=== PATIENT | male | born 1970 | race Caucasian/White ===

== ENCOUNTER 2022-03-01 15:01 | Inpatient (IN) | payer MEDICARE, MEDICAID ==
[2022-03-01 15:44] LABS: Amphetamine Screen,Urine Not Detected (NotDetected); Barbiturate Screen,Urine Not Detected (NotDetected); Benzodiazepines Screen,Urine Not Detected (NotDetected); Cocaine Screen,Urine Not Detected (NotDetected); Methadone Screen, Urine Not Detected (NotDetected); Opiate Screen,Urine Not Detected (NotDetected); Oxycodone Screen, Urine Not Detected (NotDetected); Phencyclidine Screen,Urine Not Detected (NotDetected); Tricyclic Antidepressant,Urine Not Detected (NotDetected); Urn Cannabinoid Scrn Not Detected (NotDetected)
--- NOTE | 2022-03-01 16:41 | ED ---
General Adult HPI - General Source: patient, EMS, RN notes reviewed, old records reviewed Mode of arrival: EMS Limitations: no limitations <Juventino Sandoval - Last Filed: 03/01/22 20:45> <Darius Mercer - Last Filed: 03/02/22 02:42> - General Chief complaint: Psychiatric Symptoms Stated complaint: mental health Time Seen by Provider: 03/01/22 15:05 - History of Present Illness Initial comments: This is a 52-year-old male who lives in a custodial and they sent him in and he had a court order to pick him up because patient was not taking his medications that he is becoming aggressive with staff and the other consumers. Patient does not give any insight as to why he is doing this. Patient states he thinks there are people that it might want her to besides that he has no insight as to why he is here. According to the N that came with the patient staff states that he is becoming more and more aggressive he stated that he might shoot one of the other consumers father's in the head. According to the staff is also smeared feces all over the wall and door. Patient's also thrown up some of his belongings patient is also written on his new car heart that his work gave him. Patient has also missed the last couple days of work which he normally enjoys going to. Patient denies any homicidal or suicidal ideations. Patient did tell me he was depressed but isn't extremely poor historian (Juventino Sandoval) - Related Data Home Medications Medication Instructions Recorded Confirmed Ascorbic Acid [Vitamin C] 500 mg PO DAILY 03/01/22 03/01/22 Cholecalciferol [Vitamin D3 (25 50 mcg PO DAILY 03/01/22 03/01/22 Mcg = 1000 Iu)] Citalopram Hydrobromide [CeleXA] 40 mg PO DAILY 03/01/22 03/01/22 QUEtiapine [SEROquel] 100 mg PO HS 03/01/22 03/01/22 Zinc Sulfate [Orazinc] 220 mg PO DAILY 03/01/22 03/01/22 busPIRone HCL [Buspar] 30 mg PO BID 03/01/22 03/01/22 Allergies Allergy/AdvReac Type Severity Reaction Status Date / Time fluphenazine [From Prolixin] AdvReac severe Verified 03/01/22 16:39 dystonia, not responsive to benztropine, hospitalized Review of Systems ROS Other: All systems not noted in ROS Statement are negative. <Juventino Sandoval - Last Filed: 03/01/22 20:45> ROS Other: All systems not noted in ROS Statement are negative. <RuslanDarius Julián - Last Filed: 03/02/22 02:42> ROS Statement: Those systems with pertinent positive or pertinent negative responses have been documented in the HPI. Past Medical History Additional Past Medical History / Comment(s): mild intellectual disability History of Any Multi-Drug Resistant Organisms: None Reported Past Surgical History: No Surgical Hx Reported Past Psychological History: Depression Smoking Status: Never smoker Past Alcohol Use History: None Reported Past Drug Use History: None Reported <Juventino Sandoval - Last Filed: 03/01/22 20:45> General Exam Limitations: no limitations <Juventino Sandoval - Last Filed: 03/01/22 20:45> - General Exam Comments Initial Comments: GENERAL: Patient is well-developed and well-nourished. Patient is nontoxic and well- hydrated and is in no acute distress. ENT: Neck is soft and supple. No significant lymphadenopathy is noted. Oropharynx is clear. Moist mucous membranes. Neck has full range of motion without eliciting any pain. EYES: The sclera were anicteric and conjunctiva were pink and moist. Extraocular movements were intact and pupils were equal round and reactive to light. Eyelids were unremarkable. PULMONARY: Unlabored respirations. Good breath sounds bilaterally. No audible rales rhonchi or wheezing was noted. CARDIOVASCULAR: There is a regular rate and rhythm without any murmurs gallops or rubs. ABDOMEN: Soft and nontender with normal bowel sounds. SKIN: Skin is clear with no lesions or rashes and otherwise unremarkable. NEUROLOGIC: Patient is alert and oriented unable to assess since he does not answer my questions. Cranial nerves II through XII are grossly intact. Motor and sensory are also intact. Normal speech, volume and content. Symmetrical smile. MUSCULOSKELETAL: Normal extremities with adequate strength and full range of motion. LYMPHATICS: No significant lymphadenopathy is noted PSYCHIATRIC: Patient does not answer most questions he did however at one point stated he was depressed and at another time he stated that he felt other people in the custodial were trying to hurt. (Juventino Sandoval) Course Vital Signs 03/01/22 15:02 Temperature 97.2 F L Pulse Rate 93 Respiratory 18 Rate Blood Pressure 154/89 O2 Sat by Pulse 98 Oximetry Medical Decision Making <Juventino Sandoval - Last Filed: 03/01/22 20:45> <Darius Mercer - Last Filed: 03/02/22 02:42> - Medical Decision Making Dr. Mercer will be taking over the care of this patient at 9 PM (Juventino Sandoval) Patient care signed out to me by previous shift physician, Dr. Sandoval. Briefly, patient is here in emergency department for aggressive behavior. Allegedly there is a court order to bring patient to the emergency room for psychiatric evaluation. Plan at sign out was to follow up with EPS recommendations. Was notified at 2:40 AM from EPS staff member that patient will be admitted to [facility] psychiatric unit. Certification documentation completed. (Darius Mercer) - Lab Data Lab Results 03/01/22 Range/Units 15:21 Urine Opiates Screen Not Detected (NotDetected) Ur Oxycodone Screen Not Detected (NotDetected) Urine Methadone Screen Not Detected (NotDetected) Ur Propoxyphene Screen Not Detected (NotDetected) Ur Barbiturates Screen Not Detected (NotDetected) U Tricyclic Antidepress Not Detected (NotDetected) Ur Phencyclidine Scrn Not Detected (NotDetected) Ur Amphetamines Screen Not Detected (NotDetected) U Methamphetamines Scrn Not Detected (NotDetected) U Benzodiazepines Scrn Not Detected (NotDetected) Urine Cocaine Screen Not Detected (NotDetected) U Marijuana (THC) Screen Not Detected (NotDetected) Disposition <Juventino Sandoval - Last Filed: 03/01/22 20:45> Decision Time: 02:42 <Darius Mercer - Last Filed: 03/02/22 02:42> Clinical Impression: Aggressive behavior Disposition: ADMITTED IP TO THIS HOSP Condition: Fair Referrals: Alaina Diaz MD [Primary Care Provider] - 1-2 days
[2022-03-02] MEDS ORDERED: MAG HYDROX/AL HYDROX/SIMETH 355 ML BOTTLE PO PRN (05:26)
[2022-03-02] MEDS ORDERED: HALOPERIDOL LACTATE 5 MG/ML 1 ML VIAL IM PRN (05:26)
[2022-03-02] MEDS ORDERED: ACETAMINOPHEN TAB 325 MG TAB PO PRN (05:26)
[2022-03-02] MEDS ORDERED: MAGNESIUM HYDROXIDE 2,400 MG/10 ML CUP PO PRN (05:26)
[2022-03-02] MEDS ORDERED: LORazepam 1 MG TAB PO PRN (05:26)
[2022-03-02] MEDS ORDERED: LORazepam 2 MG/ML INJ IM PRN (05:30)
[2022-03-02] MEDS ORDERED: haloperidoL 5 MG TAB PO PRN (05:30)
[2022-03-02 06:05] LABS: Appearance,Urine Cloudy (Clear); Bacteria,Urine Rare /hpf; Bilirubin,Urine Negative (Negative); Blood,Urine Negative (Negative); Color,Urine Yellow; Glucose,Urine (UA) Negative (Negative); Ketones,Urine Negative (Negative); Leukocyte Esterase,Urine Negative (Negative); Nitrite,Urine Negative (Negative); PH, Urine 6.5 (5.0-8.0); Protein,Urine Negative (Negative); Specific Gravity,Urine 1.017 (1.001-1.035); Urobilinogen,Urine <2.0 mg/dL (<2.0); WBC,Urine 1 /hpf (0-5)
[2022-03-02] MEDS: busPIRone HCl 10 MG TAB PO SCH ×2 (08:57→20:35)
[2022-03-02] MEDS: CITALOPRAM HYDROBROMIDE 20 MG TAB PO SCH (08:58)
--- NOTE | 2022-03-02 11:45 | P.CONS ---
History of Present Illness - Reason for Consult Consult date: 03/02/22 Medical management Requesting physician: Calvin Nelson - Chief Complaint Schizophrenia - History of Present Illness This is a 52-year-old male patient who presented to the ER from longterm due to court ordered to pick him up because he was apparently not taking his medication and becoming more aggressive. Patient does have a history of mild intellectual disability and depression. At this time patient is calm during exam patient denies any acute illness. Patient denies change in appetite. Patient denies nausea vomiting or diarrhea. Patient denies chest pain or shortness breath. Patient denies any urinary burning or frequency. Routine CBC and CMP has been ordered Review of Systems Please refer to HPI otherwise unremarkable Past Medical History Additional Past Medical History / Comment(s): mild intellectual disability History of Any Multi-Drug Resistant Organisms: None Reported Past Surgical History: No Surgical Hx Reported Past Psychological History: Depression, Schizoaffective Disorder Smoking Status: Never smoker Past Alcohol Use History: None Reported Past Drug Use History: None Reported Medications and Allergies Home Medications Medication Instructions Recorded Confirmed Type Ascorbic Acid [Vitamin C] 500 mg PO DAILY 03/01/22 03/02/22 History Cholecalciferol [Vitamin D3 (25 50 mcg PO DAILY 03/01/22 03/02/22 History Mcg = 1000 Iu)] Citalopram Hydrobromide [CeleXA] 40 mg PO DAILY 03/01/22 03/02/22 History QUEtiapine [SEROquel] 100 mg PO HS 03/01/22 03/02/22 History Zinc Sulfate [Orazinc] 220 mg PO DAILY 03/01/22 03/02/22 History busPIRone HCL [Buspar] 30 mg PO BID 03/01/22 03/02/22 History Allergies Allergy/AdvReac Type Severity Reaction Status Date / Time fluphenazine [From Prolixin] AdvReac severe Verified 03/02/22 05:18 dystonia, not responsive to benztropine, hospitalized Physical Exam Vitals: Vital Signs Temp Pulse Pulse Resp BP BP Pulse Ox 03/02/22 11:12 98.1 F 118 H 18 121/86 98 03/02/22 06:03 98.4 F 87 15 144/96 96 03/02/22 05:41 16 03/01/22 15:02 97.2 F L 93 18 154/89 98 Intake and Output 03/01/22 03/02/22 03/02/22 22:59 06:59 14:59 Other: Weight 95.254 kg 80.371 kg Head normocephalic Neck supple Lungs clear to auscultation bilaterally no wheezing or crackles Heart regular rate and rhythm S1-S2, no rub or gallop Abdomen is soft nontender nondistended positive bowel sounds no hepatosplenomegaly Extremities no edema Neuro alert and orientated to 3 Results Labs: Abnormal Lab Results - Last 24 Hours (Table) 03/01/22 Range/Units 15:21 Urine Bacteria Rare H (None) /hpf Assessment and Plan Assessment: 1. Aggressive behavior 2. History of depression 3. History of intellectual disability 4. History of schizoaffective disorder Thank you for this consultation we will continue to follow patient closely throughout stay Routine CBC and CMP ordered Time with Patient: Greater than 30 (Greater than 60% of the total time spent in counseling and coordination of care)
--- NOTE | 2022-03-02 11:52 | P.HP ---
Psychiatric H&P - . H&P Date: 03/02/22 History & Physical: Allergies Allergy/AdvReac Type Severity Reaction Status Date / Time fluphenazine [From Prolixin] AdvReac severe Verified 03/02/22 05:18 dystonia, not responsive to benztropine, hospitalized Vital Signs Temp 98.1 F 03/02/22 11:12 Pulse 118 H 03/02/22 11:12 Resp 18 03/02/22 11:12 BP 121/86 03/02/22 11:12 Pulse Ox 98 03/02/22 11:12 FiO2 Intake & Output 03/01/22 03/02/22 03/02/22 18:59 06:59 18:59 Weight 95.254 kg 80.371 kg Laboratory Last Values Urine Color Yellow 03/01/22 15:21 Urine Appearance Cloudy (Clear) 03/01/22 15:21 Urine pH 6.5 (5.0-8.0) 03/01/22 15:21 Ur Specific [place] 1.017 (1.001-1.035) 03/01/22 15:21 Urine Protein Negative (Negative) 03/01/22 15:21 Urine Glucose (UA) Negative (Negative) 03/01/22 15:21 Urine Ketones Negative (Negative) 03/01/22 15:21 Urine Blood Negative (Negative) 03/01/22 15:21 Urine Nitrite Negative (Negative) 03/01/22 15:21 Urine Bilirubin Negative (Negative) 03/01/22 15:21 Urine Urobilinogen <2.0 mg/dL (<2.0) 03/01/22 15:21 Ur Leukocyte Esterase Negative (Negative) 03/01/22 15:21 Urine WBC 1 /hpf (0-5) 03/01/22 15:21 Urine Bacteria Rare /hpf (None) H 03/01/22 15:21 Urine Opiates Screen Not Detected (NotDetected) 03/01/22 15:21 Ur Oxycodone Screen Not Detected (NotDetected) 03/01/22 15:21 Urine Methadone Screen Not Detected (NotDetected) 03/01/22 15:21 Ur Propoxyphene Screen Not Detected (NotDetected) 03/01/22 15:21 Ur Barbiturates Screen Not Detected (NotDetected) 03/01/22 15:21 U Tricyclic Antidepress Not Detected (NotDetected) 03/01/22 15:21 Ur Phencyclidine Scrn Not Detected (NotDetected) 03/01/22 15:21 Ur Amphetamines Screen Not Detected (NotDetected) 03/01/22 15:21 U Methamphetamines Scrn Not Detected (NotDetected) 03/01/22 15:21 U Benzodiazepines Scrn Not Detected (NotDetected) 03/01/22 15:21 Urine Cocaine Screen Not Detected (NotDetected) 03/01/22 15:21 U Marijuana (THC) Screen Not Detected (NotDetected) 03/01/22 15:21 Coronavirus (PCR) Not Detected (Not Detectd) 03/02/22 03:22 03/02/22 11:51 IDENTIFYING DATA: Patient is a single, employed, 52-year-old male with significant history of intellectual disability and major depressive disorder presents to her hospital under petition and certification on 03/01/2022 for bizarre and agitated behaviors. HPI: Patient presented to the hospital on 03/01/2022, brought in under petition and certification for bizarre and agitated behaviors. As per petition, staff has had to clearn up feces smeared on the door and [place] of his bedroom. He stuffed paper and personal belongings in the toilet. He has recently stopped taking his medications. As pet email from the patient's staff at [facility] to his guardian, "Patient wrote 'FU*K YOU' on his work Car[employer] shirt that [employer] had purchased for him. 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 He was noted to destroy property and threw away personal items. He has also been noted by staff to take other residents' belongings and respond to internal stimuli. Upon evaluation on the mental health unit, the patient does admit to what has stated in the petition and the email. He is unable to verbalize any clear reasoning but states he has been hearing voices of his mother and father who are . He denies that these voices are commanding in nature. He does report feeling increasingly depressed however is denying any suicidal or homicidal ideation. He reports low mood and states he is "stressed" but cannot identify any acute stressors to this provider. Review of the patient's [facility] medication review notes reveal that the patient was previously treated with prolixin however developed severe dystonia. He has been on seroquel in the past but was often too sedated on this medication. The patient signed himself voluntarily onto the psychiatric unit and is in agreement for medication adjustments. PAST PSYCHIATRIC HISTORY: Patient has previous diagnoses of intellectual disability and major depressive disorder. Patient has been previously trialed on prolixin and is currently on a home regimen of seroquel, buspar and citalopram. Unable to determine any previous psychiatric admissions on this unit. Patient follows with [facility]. Uncertain as to previous suicide attempts. PMH: Additional Past Medical History / Comment(s): mild intellectual disability History of Any Multi-Drug Resistant Organisms: None Reported Past Surgical History: No Surgical Hx Reported Past Psychological History: Depression, Schizoaffective Disorder Smoking Status: Never smoker Past Alcohol Use History: None Reported Past Drug Use History: None Reported ALLERGIES: Fluphenazine CHEMICAL DEPENDENCY HISTORY: Patient denies any tobacco, alcohol, marijuana, or illicit drug use. FAMILY PSYCHIATRIC/SUBSTANCE USE HISTORY: Unable to determine. SOCIAL HISTORY: Patient has a public guardian. He is a resident at the [facility]. He is employed by [employer]. He is single, not , and has no children. His parents are . He reports he had a girlfriend who also . MENTAL STATUS EXAM: General Appearance: Patient appears to be stated age is alert, directable, and attempts to cooperate. Patient appears to have disheveled hygiene and grooming. Behavior: Patient is lying down in bed without any agitated or bizarre behavior. Speech: Patient's speech is fluent, minimal, monotone, and replies in mainly one-word replies. Mood/Affect: Patient reports their mood is depressed, affect is congruent and constricted. Suicidality/Homicidality: Patient denies any suicidal or homicidal ideation. Perceptions: Patient denies any visual hallucinations however he does endorse auditory hallucinations. Though content/process: The patient admits to the bizarre behaviors however is unable to verbalize reasoning to his actions. Memory and concentration: AOX3, grossly intact for the purposes of this session. Judgment and insight: Poor STRENGTHS/WEAKNESSES: Strength is that the patient has housing and has gainful employment. Weakness is that the patient is nonadherent with medications. INTELLECT: Below average IMPRESSIONS: Intellectual Disability Major Depressive Disorder, recurrent, severe, with psychotic features. PLAN: -Patient is admitted under voluntary status to MHU for stabilization of psychiatric symptoms and safety. Patient signed adult voluntary form and medication consent and is placed in patient's chart. -Medications : Discontine Seroquel. Start Risperdal 1 mg twice daily for psychosis/mood. Continue Buspar 30 mg twice daily for anxiety Continue Citalopram 40 mg daily for depression/anxiety -Ativan and Haldol PRN for agitation/aggression -Patient was informed of the risks, benefits and side effects of the medication and patient verbally consented to taking the medications. Patient signed med consent form and was placed in chart. -Internal Medicine consult to perform medical evaluation and physical. -SW on board for discharge planning. Encourage patient to participate in groups to work on coping skills. 03/02/22 11:51
[2022-03-02] MEDS: risperiDONE 1 MG TAB PO SCH (20:35)
[2022-03-02] MEDS ORDERED: QUEtiapine 100 MG TAB PO SCH (21:00)
[2022-03-03 07:49] LABS: Basophils # (A) 0.1 k/uL (0-0.2); Basophils % (A) 1 %; Eosinophils % (A) 1 %; HGB 16.4 gm/dL (13.0-17.5); Lymphocytes # (A) 1.3 k/uL (1.0-4.8); Lymphocytes % (A) 17 %; MCH 31.2 pg (25.0-35.0); MCHC 33.4 g/dL (31.0-37.0); MCV 93.5 fL (80.0-100.0); Mean Platelet Volume 7.5; Monocytes # (A) 0.4 k/uL (0-1.0); Monocytes % (A) 5 %; Neutrophils % (A) 76 %; Platelet Count 332 k/uL (150-450); RBC 5.25 m/uL (4.30-5.90); RDW 12.3 % (11.5-15.5); WBC 7.9 k/uL (3.8-10.6)
[2022-03-03 07:54] LABS: ALT 51 U/L (4-49); AST 34 U/L (17-59); African American GFR (CKD) >90 (>60 ml/min/1.73 sqM); Albumin 4.5 g/dL (3.5-5.0); Alkaline Phosphatase 81 U/L (38-126); Anion Gap 7 mmol/L; Bilirubin, Delta 0.2 mg/dL (0.0-0.2); Bilirubin,Unconjugated 0.3 mg/dL (0.0-1.1); Blood Urea Nitrogen 14 mg/dL (9-20); Carbon Dioxide 31 mmol/L (22-30); Chloride 104 mmol/L (98-107); Glucose 118 mg/dL (74-99); Non-African American GFR(CKD) >90 (>60 ml/min/1.73 sqM); Potassium 5.2 mmol/L (3.5-5.1); Sodium 142 mmol/L (137-145); Total Bilirubin 0.5 mg/dL (0.2-1.3); Total Protein 7.7 g/dL (6.3-8.2)
[2022-03-03] MEDS: CITALOPRAM HYDROBROMIDE 20 MG TAB PO SCH (08:29)
[2022-03-03] MEDS: risperiDONE 1 MG TAB PO SCH (08:29)
[2022-03-03] MEDS: busPIRone HCl 10 MG TAB PO SCH ×2 (08:29→20:25)
[2022-03-03 10:31] LABS: Chol/HDL Ratio 4.52 Ratio; LDL Cholesterol,Calculated 125.8 mg/dL (0.0-131.0)
--- NOTE | 2022-03-03 11:20 | P.PN ---
Progress Note - Text Progress Note Date: 03/03/22 Interval History: Patient was seen resting in bed and was directable and agreeable to speak with typewriters functional tester in the office., The patient is not reporting any suicidal or homicidal ideation, intention, and/or plan. He is not reporting any visual hallucinations. He continues to report he hears the voices of his parents and girlfriend telling him "things will be ok." He denies any paranoia or other delusions. When asked why he wrote the "F*CK Y*U" on his work shirt, the patient explains that he was upset with [employer] because they did not fix the dowel at his work station. He otherwise states he loves his job. The patient was later seen wandering the hallways where he expressed he wanted to speak with the provider. He informed the provider that he was feeling sad and misses his dogs and his family. Reflective listening took place. He did not report any other issues to this provider. He denies any issues regarding his sleep or his appetite. He reports no side effects of his medications. No medical issues or concerns were endorsed. Mental Status Exam: General Appearance: Patient appears to be stated age is alert, directable, and cooperative. Behavior: Patient is calmly seated without any agitated behavior. Speech: Patient's speech is fluent and nonpressured. Mood/Affect: Mood is improving mildly, affect is congruent and constricted. Suicidality/Homicidality: Patient denies having any suicidal or homicidal ideation intent or plan. Perceptions: Patient denies any visual hallucinations however continues to endorse auditory hallucinations. Though content/process: Focused on missing his family and dogs. No delusional thought content. Memory and concentration: AOX3, grossly intact for the purposes of this session Judgment and insight: Improving mildly Vital Signs Temp 97.9 F 03/03/22 08:28 Pulse 120 H 03/03/22 08:28 Resp 18 03/03/22 08:28 BP 136/74 03/03/22 08:28 Pulse Ox 98 03/02/22 11:12 FiO2 Intake & Output 03/02/22 03/03/22 03/03/22 18:59 06:59 18:59 Weight 80.371 kg Laboratory Results - Last 24 Hours 03/03/22 03/03/22 03/03/22 07:19 07:19 07:19 WBC 7.9 RBC 5.25 Hgb 16.4 Hct 49.0 MCV 93.5 MCH 31.2 MCHC 33.4 RDW 12.3 Plt Count 332 MPV 7.5 Neutrophils % 76 Lymphocytes % 17 Monocytes % 5 Eosinophils % 1 Basophils % 1 Neutrophils # 6.0 Lymphocytes # 1.3 Monocytes # 0.4 Eosinophils # 0.0 Basophils # 0.1 Sodium 142 Potassium 5.2 H Chloride 104 Carbon Dioxide 31 H Anion Gap 7 BUN 14 Creatinine 0.90 Est GFR (CKD-EPI)AfAm >90 Est GFR (CKD-EPI)NonAf >[address] Glu mg/dL 121 Hemoglobin A1c 5.9 Calcium 9.0 Total Bilirubin 0.5 Conjugated Bilirubin 0.0 Unconjugated Bilirubin 0.3 Delta Bilirubin 0.2 AST 34 ALT 51 H Alkaline Phosphatase 81 Total Protein 7.7 Albumin 4.5 Triglycerides 142.00 Cholesterol 198.00 LDL Cholesterol, Calc 125.8 VLDL Cholesterol, Calc 28.40 HDL Cholesterol 43.80 Cholesterol/HDL Ratio 4.52 TSH 3.590 Assessment Intellectual Disability Major Depressive Disorder, recurrent, severe, with psychotic features. Plan: -Patient continues to meet criteria for inpatient psychiatric admission for symptom stabilization and safety. Patient has signed adult voluntary form and medication consent and was placed in patient's chart. -Medications: Increase Risperdal to 2 mg twice daily for psychosis/mood Continue Buspar 30 mg twice daily for anxiety Continue Citalopram 40 mg daily for depression/anxiety -When necessary Ativan and Haldol for agitation/aggression. -SW on board for discharge planning. Encouraged the patient to participate in milieu.
[2022-03-03] MEDS: risperiDONE 2 MG TAB PO SCH (20:25)
[2022-03-04] MEDS: busPIRone HCl 10 MG TAB PO SCH ×2 (09:03→21:00)
[2022-03-04] MEDS: risperiDONE 2 MG TAB PO SCH ×2 (09:04→21:00)
[2022-03-04] MEDS: CITALOPRAM HYDROBROMIDE 20 MG TAB PO SCH (09:04)
--- NOTE | 2022-03-04 11:34 | P.PN ---
Progress Note - Text Progress Note Date: 03/04/22 Interval History: Patient was seen resting in bed and was directable and agreeable to speak with tech writer in the office. Currently, the patient is not reporting any suicidal or homicidal ideation, intention, and/or plan. He is not reporting any auditory or visual hallucinations. He reports no paranoia or other delusions. He has been adherent with his medications and reports no side effects. He continues to express sadness at missing his family and girlfriend but reports no issues today. He denies any medical issues or concerns. Mental Status Exam: General Appearance: Patient appears to be stated age is alert, directable, and cooperative. Behavior: Patient is calmly seated without any agitated behavior. Speech: Patient's speech is fluent and nonpressured. Mood/Affect: Mood is improving mildly, affect is congruent and constricted. Suicidality/Homicidality: Patient denies having any suicidal or homicidal ideation intent or plan. Perceptions: Patient denies any visual hallucinations or auditory hallucinations. Though content/process: Focused on missing his family and dogs. No delusional thought content. Memory and concentration: AOX3, grossly intact for the purposes of this session Judgment and insight: Improving mildly Vital Signs Temp 98.4 F 03/04/22 06:48 Pulse 97 03/04/22 06:48 Resp 15 03/04/22 06:48 BP 115/77 03/04/22 06:48 Pulse Ox 97 03/04/22 06:48 FiO2 Assessment Intellectual Disability Major Depressive Disorder, recurrent, severe, with psychotic features. Plan: -Patient continues to meet criteria for inpatient psychiatric admission for symptom stabilization and safety. Patient has signed adult voluntary form and medication consent and was placed in patient's chart. -Medications: Continue Risperdal 2 mg twice daily for psychosis/mood Continue Buspar 30 mg twice daily for anxiety Continue Citalopram 40 mg daily for depression/anxiety -When necessary Ativan and Haldol for agitation/aggression. -SW on board for discharge planning. Encouraged the patient to participate in milieu.
[2022-03-05] MEDS: busPIRone HCl 10 MG TAB PO SCH ×2 (09:54→20:38)
[2022-03-05] MEDS: risperiDONE 2 MG TAB PO SCH ×2 (09:54→20:39)
[2022-03-05] MEDS: CITALOPRAM HYDROBROMIDE 20 MG TAB PO SCH (09:54)
--- NOTE | 2022-03-05 15:05 | P.PN ---
Progress Note - Text Progress Note Date: 03/05/22 Interval History: Patient was wandering the hallway and was directable and agreeable to speak with tech writer in his room. Currently, the patient is not reporting any suicidal or homicidal ideation, intention, and/or plan. He is not reporting any auditory or visual hallucinations. He reports no paranoia or other delusions. He has been adherent with his medications and reports no side effects. He states that he was feeling depressed yesterday but has been feeling better today. There were no behavioral concerns noted by staff. He denies any medical issues or concerns. Mental Status Exam: General Appearance: Patient appears to be stated age is alert, directable, and cooperative. Behavior: Patient is calmly seated without any agitated behavior. Speech: Patient's speech is fluent and nonpressured. Mood/Affect: Mood is improving mildly, affect is congruent and constricted. Suicidality/Homicidality: Patient denies having any suicidal or homicidal ideation intent or plan. Perceptions: Patient denies any visual hallucinations or auditory hallucinations. Though content/process: Focused on missing his family and dogs. No delusional thought content. Memory and concentration: AOX3, grossly intact for the purposes of this session Judgment and insight: Improving mildly Vital Signs Temp 98.4 F 03/04/22 06:48 Pulse 97 03/04/22 06:48 Resp 15 03/04/22 06:48 BP 115/77 03/04/22 06:48 Pulse Ox 97 03/04/22 06:48 FiO2 Assessment Intellectual Disability Major Depressive Disorder, recurrent, severe, with psychotic features. Plan: -Patient continues to meet criteria for inpatient psychiatric admission for symptom stabilization and safety. Patient has signed adult voluntary form and medication consent and was placed in patient's chart. -Medications: Continue Risperdal 2 mg twice daily for psychosis/mood Continue Buspar 30 mg twice daily for anxiety Continue Citalopram 40 mg daily for depression/anxiety -When necessary Ativan and Haldol for agitation/aggression. -SW on board for discharge planning. Encouraged the patient to participate in milieu.
[2022-03-06 06:52] VITALS: RESP 16
[2022-03-06] MEDS: busPIRone HCl 10 MG TAB PO SCH ×2 (10:26→20:52)
[2022-03-06] MEDS: risperiDONE 2 MG TAB PO SCH ×2 (10:26→20:53)
[2022-03-06] MEDS: CITALOPRAM HYDROBROMIDE 20 MG TAB PO SCH (10:26)
--- NOTE | 2022-03-06 15:21 | P.PN ---
Progress Note - Text Progress Note Date: 03/06/22 Interval History: Patient was wandering the hallway and was directable and agreeable to speak with investment underwriter in the interview room. He provides short brief responses to questions. Currently, the patient is not reporting any suicidal or homicidal ideation, intention, and/or plan. He is not reporting any auditory or visual hallucinations. He reports no paranoia or other delusions. He has been adherent with his medications and reports no side effects. He states that his mood is "good". He states he participated in groups but is unable to recall further information when asked. There were no behavioral concerns noted by staff. He denies any medical issues or concerns. Mental Status Exam: General Appearance: Patient appears to be stated age is alert, directable, and cooperative. Behavior: Patient is calmly seated without any agitated behavior. No tremors Speech: Patient's speech is fluent and nonpressured. Mood/Affect: Mood is improving mildly, affect is congruent and constricted. Suicidality/Homicidality: Patient denies having any suicidal or homicidal ideation intent or plan. Perceptions: Patient denies any visual hallucinations or auditory hallucinations. Though content/process: Focused on missing his family and dogs. No delusional thought content. Memory and concentration: AOX3, grossly intact for the purposes of this session Judgment and insight: Improving mildly Assessment Intellectual Disability Major Depressive Disorder, recurrent, severe, with psychotic features. Plan: -Patient continues to meet criteria for inpatient psychiatric admission for symptom stabilization and safety. Patient has signed adult voluntary form and medication consent and was placed in patient's chart. -Medications: Continue Risperdal 2 mg twice daily for psychosis/mood Continue Buspar 30 mg twice daily for anxiety Continue Citalopram 40 mg daily for depression/anxiety -When necessary Ativan and Haldol for agitation/aggression. -SW on board for discharge planning. Encouraged the patient to participate in milieu.
[2022-03-07 05:57] VITALS: BP 132/76; PULSE 109; TEMP 98.1
[2022-03-07] MEDS: CITALOPRAM HYDROBROMIDE 20 MG TAB PO SCH (08:53)
[2022-03-07] MEDS: risperiDONE 2 MG TAB PO SCH (08:53)
[2022-03-07] MEDS: busPIRone HCl 10 MG TAB PO SCH (08:53)
--- NOTE | 2022-03-07 12:12 | P.DS ---
Providers Date of admission: 03/02/22 04:32 Expected date of discharge: 03/07/22 Attending physician: Calvin Nelson MD Consults: 03/02/22 05:26 Consult Physician Routine Consulting Provider: Alaina Diaz Consult Reason/Comments: For H & P for Medical Follow Up Do you want consulting provider notified?: Yes Primary care physician: Alaina Diaz - Discharge Diagnosis(es) (1) Major depressive disorder, recurrent, severe with psychotic features Current Visit: Yes Status: Acute Priority: High (2) Intellectual disability Current Visit: Yes Status: Chronic Priority: Medium Hospital Course: Admission HPI: Patient is a single, employed, 52-year-old male with significant history of intellectual disability and major depressive disorder presents to her hospital under petition and certification on 03/01/2022 for bizarre and agitated behaviors. Patient presented to the hospital on 03/01/2022, brought in under petition and certification for bizarre and agitated behaviors. As per petition, staff has had to clearn up feces smeared on the door and [place] of his bedroom. He stuffed paper and personal belongings in the toilet. He has recently stopped taking his medications. As pet email from the patient's staff at [facility] home to his guardian, "Patient wrote 'FU*K YOU' on his work Carhart shirt that [employer] had purchased for him. His work curtain supervisor noted that he has had worsening behaviors and increased verbal profanity outbursts. He was noted to destroy property and threw away personal items. He has also been noted by staff to take other residents' belongings and respond to internal stimuli. Upon evaluation on the mental health unit, the patient does admit to what has stated in the petition and the email. He is unable to verbalize any clear reasoning but states he has been hearing voices of his mother and father who are . He denies that these voices are commanding in nature. He does report feeling increasingly depressed however is denying any suicidal or homicidal ideation. He reports low mood and states he is "stressed" but cannot identify any acute stressors to this provider. Review of the patient's [facility] medication review notes reveal that the patient was previously treated with prolixin however developed severe dystonia. He has been on seroquel in the past but was often too sedated on this medication. The patient signed himself voluntarily onto the psychiatric unit and is in agreement for medication adjustments. PAST PSYCHIATRIC HISTORY: Patient has previous diagnoses of intellectual d isability and major depressive disorder. Patient has been previously trialed on prolixin and is currently on a home regimen of seroquel, buspar and citalopram. Unable to determine any previous psychiatric admissions on this unit. Patient follows with [facility]. Uncertain as to previous suicide attempts. Hospital course: Upon admission to the unit patient was initially presenting as disheveled, irritable, minimal conversation however endorsing auditory hallucinations. Patient was however directable and agreeable to commence treatment. Patient got along well with other patients on the unit and followed unit protocol. Patient was compliant with the medications and denied any side effects throughout hospital course. Patient was started on Risperdal for psychosis and continued on his medications of BuSpar and . citalopram for depression and anxiety. Patient spoke of his stressors and engaged in therapy both group and individual. The patient discussed his Pa dissatisfaction with his workplace, in particular with how they have been managing his workstation. [email or web address] was also seen by medical team for history and physical exam. Over the course of the hospitalization, the patient's medications were gradually titrated. He tolerated the titration well. He displays a significant improvement regrets his target symptoms of psychosis. He also displayed no agitated or bizarre behaviors. On the day of discharge, the patient is not reporting any suicidal or homicidal ideation, intention, and/or plan. He is not reporting any auditory or visualizations. He denies any access to firearms or other weapons. He reports that he is future and goal oriented with a strong desire to return back to his home as well as his workplace. The patient does not have a significant history of substance abuse however was counseled great length on obtaining from all substances including alcohol and marijuana. He was counseled at great length on the importantance of medication adherence and appropriate outpatient follow-up. As the patient no longer met criteria for inpatient psychiatric hospitalization, he was subsequently discharged. He reports no medical issues or concerns on the day of discharge. He denies any chest pain, shortness of breath, or palpitations. Mental status exam: General Appearance: Patient appears to be stated age is alert, pleasant, and cooperative. Patient is in no acute distress and has fair hygiene and grooming Behavior: Patient is calmly seated without any agitated behavior. Speech: Patient's speech is fluent and nonpressured. Mood/Affect: Patient reports their mood is "doing good", affect is congruent and euthymic to bright. Suicidality/Homicidality: Patient denies having any suicidal or homicidal ideation intent or plan. Perceptions: Patient denies any auditory or visual hallucinations. Though content/process: There is no evidence of any delusional thought content and thought process is linear and goal-directed. Patient is future oriented. Memory and concentration: AOX3, grossly intact for the purposes of this session. Can spell "WORLD" backwards correctly. Judgment and insight: Improved with guarded prognosis Impression: Major Depressive Disorder, recurrent, severe, with psychotic features. Intellectual Disability Plan: -Continue with discharge today as patient has improved and stabilized psychiatrically and is not currently an imminent threat to himself and/or others. Patient will remain at chronically elevated risk due to the severity of his mental illness and underlying intellectual disability. -Continue medications: Risperdal 2 mg by mouth twice a day for psychosis Citalopram 40 mg by mouth daily for depression/anxiety BuSpar 30 mg by mouth twice a day for anxiety -Patient was counseled on the need for medication compliance and appropriate follow-up at mental health and also primary care for medical issues. Patient verbalized understanding and agreed. -Social work to arrange for and conduct family meeting to ensure safety upon discharge and answer any questions/concerns. Social work also to arrange for patients follow up appointments with [facility] for psychiatric care along with follow up with primary care provider. -Patient counseled on abstaining from recreational drugs and marijuana and alcohol. Was informed/educated on the adverse effects on their physical and mental health. Patient verbally agreed and understood. -Patient was instructed to return to the hospital or seek immediate medical care if their psychiatric or medical symptoms do worsen or reoccur. -Psychoeducation and supportive therapy provided to patient. Risks and benefits of pharmacological treatment versus the risks and benefits of nontreatment weight and discussed. Informed consent discussion held. Common side effects of psychotropics discussed such as, but not limited to headache, GI disturbance, sexual dysfunction, movement disorders, sedation, and orthostatic hypotension. Life threatening and blackbox warnings of prescribed medications also discussed. Potential risks of operating a vehicle or heavy machinery discussed with patient at length. Advised on importance of compliance and a reliable and responsible manner. Patient advised to review FDA consumer labeling of all medications prior to taking. Patient verbalized understanding of potential risks, and agrees with current treatment plan. Patient advised to medically contact physician/emergency personnel if any acute changes in condition occur. Vital Signs Temp 98.1 F 03/07/22 05:55 Pulse 109 H 03/07/22 05:55 Resp 16 03/07/22 05:55 BP 132/76 03/07/22 05:55 Pulse Ox 98 03/07/22 05:55 FiO2 Laboratory Results WBC 7.9 k/uL (3.8-10.6) 03/03/22 07:19 RBC 5.25 m/uL (4.30-5.90) 03/03/22 07:19 Hgb 16.4 gm/dL (13.0-17.5) 03/03/22 07:19 Hct 49.0 % (39.0-53.0) 03/03/22 07:19 MCV 93.5 fL (80.0-100.0) 03/03/22 07:19 MCH 31.2 pg (25.0-35.0) 03/03/22 07:19 MCHC 33.4 g/dL (31.0-37.0) 03/03/22 07:19 RDW 12.3 % (11.5-15.5) 03/03/22 07:19 Plt Count 332 k/uL (150-450) 03/03/22 07:19 MPV 7.5 03/03/22 07:19 Neutrophils % 76 % 03/03/22 07:19 Lymphocytes % 17 % 03/03/22 07:19 Monocytes % 5 % 03/03/22 07:19 Eosinophils % 1 % 03/03/22 07:19 Basophils % 1 % 03/03/22 07:19 Neutrophils # 6.0 k/uL (1.3-7.7) 03/03/22 07:19 Lymphocytes # 1.3 k/uL (1.0-4.8) 03/03/22 07:19 Monocytes # 0.4 k/uL (0-1.0) 03/03/22 07:19 Eosinophils # 0.0 k/uL (0-0.7) 03/03/22 07:19 Basophils # 0.1 k/uL (0-0.2) 03/03/22 07:19 Sodium 142 mmol/L (137-145) 03/03/22 07:19 Potassium 5.2 mmol/L (3.5-5.1) H 03/03/22 07:19 Chloride 104 mmol/L (98-107) 03/03/22 07:19 Carbon Dioxide 31 mmol/L (22-30) H 03/03/22 07:19 Anion Gap 7 mmol/L 03/03/22 07:19 BUN 14 mg/dL (9-20) 03/03/22 07:19 Creatinine 0.90 mg/dL (0.66-1.25) 03/03/22 07:19 Est GFR (CKD-EPI)AfAm >90 (>60 ml/min/1.73 sqM) 03/03/22 07:19 Est GFR (CKD-EPI)NonAf >90 (>60 ml/min/1.73 sqM) 03/03/22 07:19 Glucose 118 mg/dL (74-99) H 03/03/22 07:[address] Glu mg/dL 121 03/03/22 07:19 Hemoglobin A1c 5.9 % (0.0-6.0) 03/03/22 07:19 Calcium 9.0 mg/dL (8.4-10.2) 03/03/22 07:19 Total Bilirubin 0.5 mg/dL (0.2-1.3) 03/03/22 07:19 Conjugated Bilirubin 0.0 mg/dL (0.0-0.3) 03/03/22 07:19 Unconjugated Bilirubin 0.3 mg/dL (0.0-1.1) 03/03/22 07:19 Delta Bilirubin 0.2 mg/dL (0.0-0.2) 03/03/22 07:19 AST 34 U/L (17-59) 03/03/22 07:19 ALT 51 U/L (4-49) H 03/03/22 07:19 Alkaline Phosphatase 81 U/L (38-126) 03/03/22 07:19 Total Protein 7.7 g/dL (6.3-8.2) 03/03/22 07:19 Albumin 4.5 g/dL (3.5-5.0) 03/03/22 07:19 Triglycerides 142.00 mg/dL (0.00-149.00) 03/03/22 07:19 Cholesterol 198.00 mg/dL (0.00-200.00) 03/03/22 07:19 LDL Cholesterol, Calc 125.8 mg/dL (0.0-131.0) 03/03/22 07:19 VLDL Cholesterol, Calc 28.40 mg/dL (5.00-40.00) 03/03/22 07:19 HDL Cholesterol 43.80 mg/dL (40.00-60.00) 03/03/22 07:19 Cholesterol/HDL Ratio 4.52 Ratio 03/03/22:19 TSH 3.590 mIU/L (0.465-4.680) 03/03/22 07:19 Urine Color Yellow 03/01/22 15:21 Urine Appearance Cloudy (Clear) 03/01/22 15: Urine pH 6.5 (5.0-8.0) 03/01/22 15:21 Ur Specific [place] 1.017 (1.001-1.035) 03/01/22 15:21 Urine Protein Negative (Negative) 03/01/22 15:21 Urine Glucose (UA) Negative (Negative) 03/01/22 15: Urine Ketones Negative (Negative) 03/01/22 15: Urine Blood Negative (Negative) 03/01/22 15:21 Urine Nitrite Negative (Negative) 03/01/22 15:21 Urine Bilirubin Negative (Negative) 03/01/22 15:21 Urine Urobilinogen <2.0 mg/dL (<2.0) 03/01/22 15:21 Ur Leukocyte Esterase Negative (Negative) 03/01/22 15:21 Urine WBC 1 /hpf (0-5) 03/01/22 15:21 Urine Bacteria Rare /hpf (None) H 03/01/22 15:21 Urine Opiates Screen Not Detected (NotDetected) 03/01/22 15:21 Ur Oxycodone Screen Not Detected (NotDetected) 03/01/22 15:21 Urine Methadone Screen Not Detected (NotDetected) 03/01/22 15:21 Ur Propoxyphene Screen Not Detected (NotDetected) 03/01/22 15:21 Ur Barbiturates Screen Not Detected (NotDetected) 03/01/22 15:21 U Tricyclic Antidepress Not Detected (NotDetected) 03/01/22 15:21 Ur Phencyclidine Scrn Not Detected (NotDetected) 03/01/22 15:21 Ur Amphetamines Screen Not Detected (NotDetected) 03/01/22 15:21 U Methamphetamines Scrn Not Detected (NotDetected) 03/01/22 15:21 U Benzodiazepines Scrn Not Detected (NotDetected) 03/01/22 15:21 Urine Cocaine Screen Not Detected (NotDetected) 03/01/22 15:21 U Marijuana (THC) Screen Not Detected (NotDetected) 03/01/22 15:21 Coronavirus (PCR) Not Detected (Not Detectd) 03/02/22 03:22 Allergies Allergy/AdvReac Type Severity Reaction Status Date / Time fluphenazine [From Prolixin] AdvReac severe Verified 03/02/22 05:18 dystonia, not responsive to benztropine, hospitalized Patient Condition at Discharge: Stable Plan - Discharge Summary Discharge Rx Participant: No New Discharge Prescriptions: New risperiDONE [RisperDAL] 2 mg PO BID 30 Days tab Continue Zinc Sulfate [Orazinc] 220 mg PO DAILY Cholecalciferol [Vitamin D3 (25 Mcg = 1000 Iu)] 50 mcg PO DAILY Ascorbic Acid [Vitamin C] 500 mg PO DAILY busPIRone HCL [Buspar] 30 mg PO BID 30 Days tab Citalopram Hydrobromide [CeleXA] 40 mg PO DAILY 30 Days tab Discontinued QUEtiapine [SEROquel] 100 mg PO HS Discharge Medication List Ascorbic Acid [Vitamin C] 500 mg PO DAILY 03/01/22 [History] Cholecalciferol [Vitamin D3 (25 Mcg = 1000 Iu)] 50 mcg PO DAILY 03/01/22 [History] Zinc Sulfate [Orazinc] 220 mg PO DAILY 03/01/22 [History] Citalopram Hydrobromide [CeleXA] 40 mg PO DAILY 30 Days tab 03/04/22 [Rx] busPIRone HCL [Buspar] 30 mg PO BID 30 Days tab 03/04/22 [Rx] risperiDONE [RisperDAL] 2 mg PO BID 30 Days tab 03/04/22 [Rx] Follow up Appointment(s)/Referral(s): [facility] [Outside] - 03/07/22 3:30 pm (03-07-22 at 3:30 with Cindy Tracey at [place] 03-23-22 at 3:[address] Baez at [facility] ) Alaina Diaz MD [Primary Care Provider] - 1-2 days Patient Instructions/Handouts: Depression (DC), Psychotic Disorder (DC) Activity/Diet/Wound Care/Special Instructions: Avoid the use of street drugs and alcohol. Take all prescriptions as prescribed. When you are in need of refills on your medications, please contact your medical provider and/or outpatient psychiatrist to have this done. Please go to scheduled outpatient appointment for aftercare treatment. If symptoms return or become worse, call the crisis line at and/or go to the nearest emergency room for evaluation Discharge Disposition: HOME SELF-CARE
== END 2022-03-07 16:05 | disposition home or self-care (01) | DRG 885 ==
LOC: EC 15:01 → EEVIPCON 15:01 → 3MHU 03-02 04:32
PROVIDERS: ADMIT Psychiatry & Neurology Psychiatry; ATTEND Psychiatry & Neurology Psychiatry
DX: F33.3 Major depressive disorder, recurrent, severe with psychotic symptoms (principal); F41.9 Anxiety disorder, unspecified; F70 Mild intellectual disabilities; Z79.899 Other long term (current) drug therapy; Z20.822 Contact with and (suspected) exposure to COVID-19
CPT/HCPCS: 80053; 80061; 80306; 81001; 82248; 83036; 84443; 85025; 87635; 99285

== ENCOUNTER 2022-03-10 02:36 | Emergency (ER) | payer MEDICARE, OTHER ==
[2022-03-10 02:45] VITALS: RESP 18
[2022-03-10 02:52] LABS: Glucose,Whole Blood 102 mg/dL (70-110)
[2022-03-10] MEDS ORDERED: BENZTROPINE 2 MG/2 ML AMP IV STA (02:52)
[2022-03-10 03:26] LABS: Basophils # (A) 0.1 k/uL (0-0.2); Basophils % (A) 1 %; Eosinophils % (A) 0 %; HCT 42.1 % (39.0-53.0); HGB 14.3 gm/dL (13.0-17.5); Lymphocytes # (A) 1.3 k/uL (1.0-4.8); Lymphocytes % (A) 12 %; MCH 30.6 pg (25.0-35.0); MCHC 33.9 g/dL (31.0-37.0); MCV 90.4 fL (80.0-100.0); Mean Platelet Volume 7.8; Monocytes # (A) 0.7 k/uL (0-1.0); Monocytes % (A) 6 %; Neutrophils # (A) 9.2 k/uL (1.3-7.7); Neutrophils % (A) 80 %; Platelet Count 288 k/uL (150-450); RBC 4.66 m/uL (4.30-5.90); RDW 12.8 % (11.5-15.5); WBC 11.5 k/uL (3.8-10.6)
[2022-03-10 03:37] LABS: Appearance,Urine Clear (Clear); Bilirubin,Urine Negative (Negative); Blood,Urine Negative (Negative); Color,Urine Yellow; Glucose,Urine (UA) Negative (Negative); Hyaline Casts,Urine 1 /lpf (0-2); Ketones,Urine 2+ (Negative); Leukocyte Esterase,Urine Negative (Negative); Mucus,Urine Many /hpf; Nitrite,Urine Negative (Negative); PH, Urine 5.5 (5.0-8.0); Protein,Urine 1+ (Negative); RBC,Urine 1 /hpf (0-5); Specific Gravity,Urine 1.032 (1.001-1.035); Urobilinogen,Urine <2.0 mg/dL (<2.0); WBC,Urine 1 /hpf (0-5)
[2022-03-10 03:58] LABS: ALT 39 U/L (4-49); AST 88 U/L (17-59); African American GFR (CKD) >90 (>60 ml/min/1.73 sqM); Albumin 3.9 g/dL (3.5-5.0); Alkaline Phosphatase 78 U/L (38-126); Anion Gap 7 mmol/L; Blood Urea Nitrogen 13 mg/dL (9-20); Calcium 7.9 mg/dL (8.4-10.2); Carbon Dioxide 23 mmol/L (22-30); Chloride 109 mmol/L (98-107); Glucose 92 mg/dL (74-99); Magnesium 2.4 mg/dL (1.6-2.3); Non-African American GFR(CKD) >90 (>60 ml/min/1.73 sqM); Potassium 3.7 mmol/L (3.5-5.1); Sodium 139 mmol/L (137-145); Total Bilirubin 0.9 mg/dL (0.2-1.3); Total Protein 6.5 g/dL (6.3-8.2)
--- NOTE | 2022-03-10 05:25 | ED ---
General Adult HPI - General Chief complaint: Altered Mental Status Stated complaint: Weakness Time Seen by Provider: 03/10/22 02:39 Source: patient, EMS Mode of arrival: EMS Limitations: altered mental status, physical limitation - History of Present Illness Initial comments: This is a 52-year-old male with past medical history including previous develop mental delay recently started on risperidone presents emergency department via EMS for altered mental status. The patient had been noted to be altered over the last 1-1/2 weeks and was seen and evaluated at [facility] approximately 2 hours prior to arrival here in this emergency department. It was reported the patient has had multiple falls and he had scans of his head and C-spine at the outside facility that were negative. The patient was sent back to his assisted living facility where they sent the patient here for further evaluation. On evaluation, the patient was able to answer all questions appropriately however had delayed speech as well as delayed motion of the upper and lower extremities. The patient reportedly just started risperidone 1 week ago. The patient did not have any acute pain or distress at this time and was sitting in bed comfortably. The patient denied any fevers or chills however cannot provide any further history at this time. - Related Data Home Medications Medication Instructions Recorded Confirmed Ascorbic Acid [Vitamin C] 500 mg PO DAILY 03/01/22 03/02/22 Cholecalciferol [Vitamin D3 (25 50 mcg PO DAILY 03/01/22 03/02/22 Mcg = 1000 Iu)] Zinc Sulfate [Orazinc] 220 mg PO DAILY 03/01/22 03/02/22 Previous Rx's Medication Instructions Recorded Citalopram Hydrobromide [CeleXA] 40 mg PO DAILY 30 Days tab 03/04/22 busPIRone HCL [Buspar] 30 mg PO BID 30 Days tab 03/04/22 risperiDONE [RisperDAL] 2 mg PO BID 30 Days tab 03/04/22 Allergies Allergy/AdvReac Type Severity Reaction Status Date / Time fluphenazine [From Prolixin] AdvReac severe Verified 03/02/22 05:18 dystonia, not responsive to benztropine, hospitalized Review of Systems ROS Statement: Those systems with pertinent positive or pertinent negative responses have been documented in the HPI. ROS Other: All systems not noted in ROS Statement are negative. Past Medical History Additional Past Medical History / Comment(s): mild intellectual disability History of Any Multi-Drug Resistant Organisms: None Reported Past Surgical History: No Surgical Hx Reported Smoking Status: Never smoker General Exam Limitations: altered mental status, physical limitation General appearance: alert, in no apparent distress Head exam: Present: atraumatic, normocephalic Eye exam: Present: normal appearance, PERRL Pupils: Present: normal accommodation ENT exam: Present: normal exam, normal oropharynx, mucous membranes moist Neck exam: Present: normal inspection, full ROM Respiratory exam: Present: normal lung sounds bilaterally Cardiovascular Exam: Present: regular rate, normal rhythm, normal heart sounds GI/Abdominal exam: Present: soft, normal bowel sounds Extremities exam: Present: normal inspection, full ROM Back exam: Present: normal inspection, full ROM Neurological exam: Present: alert, oriented X3, CN II-XII intact Psychiatric exam: Present: normal affect, normal mood Skin exam: Present: warm, dry Course Vital Signs 03/10/22 03/10/22 03/10/22 02:40 05:45 06:16 Temperature 98.3 F 97.5 F L Pulse Rate 100 103 H 100 Respiratory 18 18 18 Rate Blood Pressure 139/95 123/79 128/85 O2 Sat by Pulse 96 95 96 Oximetry Medical Decision Making - Medical Decision Making Was pt. sent in by a medical professional or institution? @Sent in by his assisted living facility Did you speak to anyone other than the patient for history? @No Did you review nursing and triage notes? @Triage note was reviewed as the nurse was given report by EMS and I was not present when EMS was present. Were old charts reviewed? @Outside hospital records were reviewed from the previous evaluation in the ER this evening Differential Diagnosis? @Acute CVA, drug intoxication, metabolic encephalopathy EKG interpreted by me (3pts min.)? @ [none] X-rays interpreted by me (1pt min.)? @ [none] CT interpreted by me (1pt min.)? @ [none] U/S interpreted by me (1pt. min.)? @ [none] What testing was considered but not performed? (CT, X-rays, U/S, labs)? Why? @Computed tomography scan of the head and CT C-spine were considered however the patient had a full workup at the outside facility performed just hours prior that was negative therefore no further imaging was obtained at this time. What meds were considered but not given? Why? @ [none] Did you discuss the management of the patient with other professionals? @No Did you reconcile home meds? @ [none] Was smoking cessation discussed for >3mins.? @ [none] Was critical care preformed (if so, how long)? @ [none] Were there social determinants of health that impacted care today? How? (Homelessness, low income, unemployed, alcoholism, drug addiction, transportation, low edu. Level, literacy, decrease access to med. care, intermediate, rehab)? @Patient is developmentally delayed Was there de-escalation of care discussed even if they declined? (Discuss DNR or withdrawal of care, Hospice)? @No What co-morbidities impacted this encounter? (DM, HTN, Smoking, COPD, CAD, Cancer, CVA, Hep., AIDS, mental health diagnosis, sleep apnea, morbid obesity)? @Developmental delay Was patient admitted / discharged? @The patient was seen and evaluated emergency department. Because the patient had a workup at an outside facility, no further imaging was obtained this time as the imaging was negative. Laboratory workup was obtained and was all within normal limits. The patient was not altered at this time and denied of any acute focal findings. The patient was started on risperidone and likely had a dystonic reaction secondary to this. The patient was given a dose of Cogentin in the emergency department and did have some minor improvement. The patient was stable for discharge back to the facility where he would be reevaluated by the physician there and Cogentin could be prescribed there and not in the emergency department currently. The facility was contacted and accepted the patient back for admission. The patient's guardian was also contacted and accepted this plan. The patient was sent back to the nursing facility in stable condition. Undiagnosed new problem with uncertain prognosis? @ [none] Drug Therapy requiring intensive monitoring for toxicity (Heparin, Nitro, Insulin, Cardizem)? @ [none] Were any procedures done? @ [none] Diagnosis/symptom? @Dystonic reaction secondary to risperidone use Acute, or Chronic, or Acute on Chronic? @Acute Uncomplicated (without systemic symptoms) or Complicated (systemic symptoms)? @Uncomplicated Side effects of treatment? @ [none] Exacerbation, Progression, or Severe Exacerbation] @ [no] Poses a threat to life or bodily function? @ [no] - Lab Data Result diagrams: 03/10/22 02:53 03/10/22 02:53 Lab Results 03/10/22 03/10/22 03/10/22 Range/Units 02:50 02:53 02:53 WBC 11.5 H (3.8-10.6) k/uL RBC 4.66 (4.30-5.90) m/uL Hgb 14.3 (13.0-17.5) gm/dL Hct 42.1 (39.0-53.0) % MCV 90.4 (80.0-100.0) fL MCH 30.6 (25.0-35.0) pg MCHC 33.9 (31.0-37.0) g/dL RDW 12.8 (11.5-15.5) % Plt Count 288 (150-450) k/uL MPV 7.8 Neutrophils % 80 % Lymphocytes % 12 % Monocytes % 6 % Eosinophils % 0 % Basophils % 1 % Neutrophils # 9.2 H (1.3-7.7) k/uL Lymphocytes # 1.3 (1.0-4.8) k/uL Monocytes # 0.7 (0-1.0) k/uL Eosinophils # 0.0 (0-0.7) k/uL Basophils # 0.1 (0-0.2) k/uL Sodium 139 (137-145) mmol/L Potassium 3.7 (3.5-5.1) mmol/L Chloride 109 H (98-107) mmol/L Carbon Dioxide 23 (22-30) mmol/L Anion Gap 7 mmol/L BUN 13 (9-20) mg/dL Creatinine 0.88 (0.66-1.25) mg/dL Est GFR (CKD-EPI)AfAm >90 (>60 ml/min/1.73 sqM) Est GFR (CKD-EPI)NonAf >90 (>60 ml/min/1.73 sqM) Glucose 92 (74-99) mg/dL POC Glucose (mg/dL) 102 (70-110) mg/dL POC Glu Merchandise Flow Team Leader ID Lizbeth Rahman Calcium 7.9 L (8.4-10.2) mg/dL Magnesium 2.4 H (1.6-2.3) mg/dL Total Bilirubin 0.9 (0.2-1.3) mg/dL AST 88 H (17-59) U/L ALT 39 (4-49) U/L Alkaline Phosphatase 78 (38-126) U/L Total Protein 6.5 (6.3-8.2) g/dL Albumin 3.9 (3.5-5.0) g/dL Urine Color Urine Appearance (Clear) Urine pH (5.0-8.0) Ur Specific [place] (1.001-1.035) Urine Protein (Negative) Urine Glucose (UA) (Negative) Urine Ketones (Negative) Urine Blood (Negative) Urine Nitrite (Negative) Urine Bilirubin (Negative) Urine Urobilinogen (<2.0) mg/dL Ur Leukocyte Esterase (Negative) Urine RBC (0-5) /hpf Urine WBC (0-5) /hpf Hyaline Casts (0-2) /lpf Urine Mucus (None) /hpf 03/10/22 Range/Units 03:08 WBC (3.8-10.6) k/uL RBC (4.30-5.90) m/uL Hgb (13.0-17.5) gm/dL Hct (39.0-53.0) % MCV (80.0-100.0) fL MCH (25.0-35.0) pg MCHC (31.0-37.0) g/dL RDW (11.5-15.5) % Plt Count (150-450) k/uL MPV Neutrophils % % Lymphocytes % % Monocytes % % Eosinophils % % Basophils % % Neutrophils # (1.3-7.7) k/uL Lymphocytes # (1.0-4.8) k/uL Monocytes # (0-1.0) k/uL Eosinophils # (0-0.7) k/uL Basophils # (0-0.2) k/uL Sodium (137-145) mmol/L Potassium (3.5-5.1) mmol/L Chloride (98-107) mmol/L Carbon Dioxide (22-30) mmol/L Anion Gap mmol/L BUN (9-20) mg/dL Creatinine (0.66-1.25) mg/dL Est GFR (CKD-EPI)AfAm (>60 ml/min/1.73 sqM) Est GFR (CKD-EPI)NonAf (>60 ml/min/1.73 sqM) Glucose (74-99) mg/dL POC Glucose (mg/dL) (70-110) mg/dL POC Glu Merchandise Flow Team Leader ID Calcium (8.4-10.2) mg/dL Magnesium (1.6-2.3) mg/dL Total Bilirubin (0.2-1.3) mg/dL AST (17-59) U/L ALT (4-49) U/L Alkaline Phosphatase (38-126) U/L Total Protein (6.3-8.2) g/dL Albumin (3.5-5.0) g/dL Urine Color Yellow Urine Appearance Clear (Clear) Urine pH 5.5 (5.0-8.0) Ur Specific [place] 1.032 (1.001-1.035) Urine Protein 1+ H (Negative) Urine Glucose (UA) Negative (Negative) Urine Ketones 2+ H (Negative) Urine Blood Negative (Negative) Urine Nitrite Negative (Negative) Urine Bilirubin Negative (Negative) Urine Urobilinogen <2.0 (<2.0) mg/dL Ur Leukocyte Esterase Negative (Negative) Urine RBC 1 (0-5) /hpf Urine WBC 1 (0-5) /hpf Hyaline Casts 1 (0-2) /lpf Urine Mucus Many H (None) /hpf Disposition Clinical Impression: Altered mental status Disposition: HOME SELF-CARE Condition: Stable Instructions (If sedation given, give patient instructions): Altered Mental Status (ED) Is patient prescribed a controlled substance at d/c from ED?: No Referrals: Alaina Diaz MD [Primary Care Provider] - 1-2 days Time of Disposition: 04:00
[2022-03-10 05:46] VITALS: TEMP 97.5
[2022-03-10 06:17] VITALS: BP 128/85; PULSE 100
== END 2022-03-10 06:16 | disposition home or self-care (01) ==
LOC: EC 02:36
DX: R41.82 Altered mental status, unspecified (principal); Z88.7 Allergy status to serum and vaccine
CPT/HCPCS: 36415; 80053; 83735; 85025; 81001; 99285; 96374; J0515

== ENCOUNTER 2022-03-28 15:51 | Inpatient (IN) | payer MEDICARE, OTHER ==
[2022-03-28 16:12] LABS: Glucose,Whole Blood 76 mg/dL (70-110)
[2022-03-28] MEDS ORDERED: SODIUM CHLORIDE 0.9% 1,000 ML IV ONE (16:16)
--- NOTE | 2022-03-28 16:22 | ED ---
Altered Mental Status HPI <Son Garcia - Last Filed: 03/29/22 04:12> - General Source: patient, EMS Mode of arrival: EMS Limitations: no limitations - History of Present Illness MD Complaint: altered mental status Onset/Timin -: days(s) Severity: moderate Consistency of Symptoms: getting worse Associated Symptoms: denies other symptoms <Terrance Briggs - Last Filed: 04/04/22 00:44> - General Chief Complaint: Altered Mental Status Stated Complaint: altered Time Seen by Provider: 03/28/22 16:09 - History of Present Illness Initial Comments: This patient is a 52-year-old man comes from his long-term care facility to have evaluation for a change in his mental status. Patient has history of "intellectual impairment." It is reported that the patient does not seem like his usual self. The patient reportedly walking into [place] at the residence. When I review the patient, he denies complaints. When asked why he is here, he states "because I have discouragements." He denies pain anywhere. He denies dyspnea. (Terrance Briggs) - Related Data Home Medications Medication Instructions Recorded Confirmed Ascorbic Acid [Vitamin C] 500 mg PO DAILY 03/01/22 03/28/22 Cholecalciferol [Vitamin D3 (25 50 mcg PO DAILY 03/01/22 03/28/22 Mcg = 1000 Iu)] Previous Rx's Medication Instructions Recorded ARIPiprazole [Abilify] 5 mg PO DAILY tab 03/30/22 Benztropine Mesylate [Cogentin] 0.5 mg PO DAILY 30 Days #30 tablet 03/30/22 Sertraline [Zoloft] 50 mg PO DAILY tab 03/30/22 Allergies Allergy/AdvReac Type Severity Reaction Status Date / Time fluphenazine [From Prolixin] AdvReac severe Verified 03/28/22 17:01 dystonia, not responsive to benztropine, hospitalized Review of Systems ROS Other: All systems not noted in ROS Statement are negative. <Son Garcia - Last Filed: 03/29/22 04:12> ROS Other: All systems not noted in ROS Statement are negative. Limitations: ROS unobtainable due to patients medical condition Constitutional: Denies: fever Respiratory: Denies: cough, dyspnea Cardiovascular: Denies: chest pain Gastrointestinal: Denies: abdominal pain Neurological: Denies: headache <Terrance Briggs Last Filed: 04/04/22 00:44> ROS Statement: Those systems with pertinent positive or pertinent negative responses have been documented in the HPI. Past Medical History Additional Past Medical History / Comment(s): mild intellectual disability History of Any Multi-Drug Resistant Organisms: None Reported Past Surgical History: No Surgical Hx Reported Past Psychological History: Depression, Schizoaffective Disorder Smoking Status: Never smoker <Terrance Briggs Last Filed: 04/04/22 00:44> General Exam Limitations: altered mental status General appearance: alert, in no apparent distress Head exam: Present: atraumatic, normocephalic Eye exam: Present: normal appearance. Absent: scleral icterus, conjunctival injection ENT exam: Present: normal oropharynx Neck exam: Present: normal inspection, full ROM. Absent: meningismus Respiratory exam: Present: normal lung sounds bilaterally. Absent: respiratory distress, wheezes, rales, rhonchi, stridor Cardiovascular Exam: Present: regular rate, normal rhythm, normal heart sounds. Absent: systolic murmur, diastolic murmur, rubs, gallop GI/Abdominal exam: Present: soft. Absent: distended, tenderness, guarding, r ebound, rigid, mass Extremities exam: Present: normal inspection, normal capillary refill. Absent: pedal edema, calf tenderness Back exam: Present: normal inspection. Absent: CVA tenderness (R), CVA tenderness (L) Neurological exam: Present: alert, CN II-XII intact. Absent: motor sensory deficit Skin exam: Present: warm, dry, intact, normal color. Absent: rash <Terrance Briggs Last Filed: 04/04/22 00:44> Course Vital Signs 03/28/22 03/28/22 03/29/22 15:58 19:07 02:00 Temperature 97.8 F 98.2 F 98.2 F Pulse Rate 92 120 H 98 Respiratory 18 20 16 Rate Blood Pressure 125/83 163/84 125/81 O2 Sat by Pulse 100 96 Oximetry 03/29/22 03/29/22 03/29/22 05:58 09:07 12:36 Temperature 99.2 F 98.7 F Pulse Rate 70 81 96 Respiratory 15 18 18 Rate Blood Pressure 139/76 116/81 134/84 O2 Sat by Pulse 98 96 Oximetry Medical Decision Making - Lab Data Result diagrams: 03/28/22 16:18 03/28/22 16:18 <Son Garcia - Last Filed: 03/29/22 04:12> - Lab Data Result diagrams: 03/31/22 06:33 03/31/22 06:33 - EKG Data -: EKG Interpreted by Me EKG shows normal: sinus rhythm, axis (Normal), intervals (Normal), QRS complexes (Normal), ST-T waves (Normal) Rate: normal (Rate 92 bpm) Interpretation: normal EKG <Terrance Briggs - Last Filed: 04/04/22 00:44> - Medical Decision Making I assumed care of the patient from Dr. Briggs pending the completion of the urine results. Was pt. sent in by a medical professional or institution (, PA, CONCESSION STAND ATTENDANT, urgent care, hospital, or group home...) When possible be specific @ -Yes, patient's nursing facility Did you speak to anyone other than the patient for history (EMS, parent, family, police, friend...)? What history was obtained from this source @ -Yes, EMS and nurse regarding the report from the facility Did you review nursing and triage notes (agree or disagree)? Why? @ -I reviewed and agree with nursing and triage notes Were old charts reviewed (outside hosp., previous admission, EMS record, old EKG, old radiological studies, urgent care reports/EKG's, group home records)? Report findings @ -Yes, group home chart was reviewed Differential Diagnosis (chest pain, altered mental status, abdominal pain women, abdominal pain men, vaginal bleeding, weakness, fever, dyspnea, syncope, headache, dizziness, GI bleed, back pain, seizure, CVA, palpatations, mental he alth)? @ -UTI, sepsis, URI EKG interpreted by me (3pts min.). @ -As above X-rays interpreted by me (1pt min.). @ -Chest x-ray was obtained and was interpreted by myself showing no acute process. CT interpreted by me (1pt min.). @ -Head CT was obtained and was interpreted by myself showing moderate bilateral cerebellar atrophy. There was no acute intracranial [place]. U/S interpreted by me (1pt. min.). @ -None done What testing was considered but not performed or refused? (CT, X-rays, U/S, labs)? Why? @ -None What meds were considered but not given or refused? Why? @ -None Did you discuss the management of the patient with other professionals (professionals i.e. , PA, CONCESSION STAND ATTENDANT, lab, RT, psych nurse, director of social work, email manager, teacher, founder and chief executive officer, manager of case management)? Give summary @ -No Was smoking cessation discussed for >3mins.? @ -No Was critical care preformed (if so, how long)? @ -No Were there social determinants of health that impacted care today? How? (Homelessness, low income, unemployed, alcoholism, drug addiction, transportation, low edu. Level, literacy, decrease access to med. care, usp, rehab)? @ -Developmental delay, patient has a guardian Was there de-escalation of care discussed even if they declined (Discuss DNR or withdrawal of care, Hospice)? DNR status @ -No What co-morbidities impacted this encounter? (DM, HTN, Smoking, COPD, CAD, Cancer, CVA, ARF, Chemo, Hep., AIDS, mental health diagnosis, sleep apnea, mor bid obesity)? @ -Developmental delay, group home patient Was patient admitted / discharged? Hospital course, mention meds given and route, prescriptions, significant lab abnormalities, going to OR and other pertinent info. @ -The patient was seen and evaluated by Dr. Briggs initially. I assumed care of the patient pending the urinalysis. All laboratory workup was within normal limits and all imaging was negative. It was reported the patient was back to his baseline and was not altered. There was no infection noted the patient was deemed stable for discharge back to his facility. They did accept the patient back and the patient was transferred back in stable condition. Undiagnosed new problem with uncertain prognosis? @ -No Drug Therapy requiring intensive monitoring for toxicity (Heparin, Nitro, Insulin, Cardizem)? @ -No Were any procedures done? @ -No Diagnosis/symptom? @ -Altered mental status, resolved, medical screening exam Acute, or Chronic, or Acute on Chronic? @ -Acute Uncomplicated (without systemic symptoms) or Complicated (systemic symptoms)? @ -Uncomplicated Side effects of treatment? @ -No Exacerbation, Progression, or Severe Exacerbation? @ -No Poses a threat to life or bodily function? How? (Chest pain, [place], [place], pneumonia, PE, COPD, DKA, ARF, appy, cholecystitis, CVA, Diverticulitis, Homicidal, Suicidal, threat to staff... and all critical care pts) @ -No (Son Garcia) - Lab Data Lab Results 03/28/22 03/28/22 03/28/22 Range/Units 16:03 16:18 16:18 WBC 8.1 (3.8-10.6) k/uL RBC 4.78 (4.30-5.90) m/uL Hgb 14.7 (13.0-17.5) gm/dL Hct 44.1 (39.0-53.0) % MCV 92.4 (80.0-100.0) fL MCH 30.8 (25.0-35.0) pg MCHC 33.4 (31.0-37.0) g/dL RDW 12.6 (11.5-15.5) % Plt Count 312 (150-450) k/uL MPV 7.5 Neutrophils % 78 % Lymphocytes % 14 % Monocytes % 6 % Eosinophils % 0 % Basophils % 1 % Neutrophils # 6.3 (1.3-7.7) k/uL Lymphocytes # 1.1 (1.0-4.8) k/uL Monocytes # 0.5 (0-1.0) k/uL Eosinophils # 0.0 (0-0.7) k/uL Basophils # 0.0 (0-0.2) k/uL PT 10.6 (9.0-12.0) sec INR 1.0 (<1.2) APTT 22.0 (22.0-30.0) sec Sodium (137-145) mmol/L Potassium (3.5-5.1) mmol/L Chloride (98-107) mmol/L Carbon Dioxide (22-30) mmol/L Anion Gap mmol/L BUN (9-20) mg/dL Creatinine (0.66-1.25) mg/dL Est GFR (CKD-EPI)AfAm (>60 ml/min/1.73 sqM) Est GFR (CKD-EPI)NonAf (>60 ml/min/1.73 sqM) Glucose (74-99) mg/dL POC Glucose (mg/dL) 76 (70-110) mg/dL POC Glu Laser Systems Engineer ID Lou, Harjinder Calcium (8.4-10.2) mg/dL Total Bilirubin (0.2-1.3) mg/dL AST (17-59) U/L ALT (4-49) U/L Alkaline Phosphatase (38-126) U/L Troponin I (0.000-0.034) ng/mL Total Protein (6.3-8.2) g/dL Albumin (3.5-5.0) g/dL Urine Color Urine Appearance (Clear) Urine pH (5.0-8.0) Ur Specific [place] (1.001-1.035) Urine Protein (Negative) Urine Glucose (UA) (Negative) Urine Ketones (Negative) Urine Blood (Negative) Urine Nitrite (Negative) Urine Bilirubin (Negative) Urine Urobilinogen (<2.0) mg/dL Ur Leukocyte Esterase (Negative) 03/28/22 03/28/22 03/29/22 Range/Units 16:18 16:18 02:00 WBC (3.8-10.6) k/uL RBC (4.30-5.90) m/uL Hgb (13.0-17.5) gm/dL Hct (39.0-53.0) % MCV (80.0-100.0) fL MCH (25.0-35.0) pg MCHC (31.0-37.0) g/dL RDW (11.5-15.5) % Plt Count (150-450) k/uL MPV Neutrophils % % Lymphocytes % % Monocytes % % Eosinophils % % Basophils % % Neutrophils # (1.3-7.7) k/uL Lymphocytes # (1.0-4.8) k/uL Monocytes # (0-1.0) k/uL Eosinophils # (0-0.7) k/uL Basophils # (0-0.2) k/uL PT (9.0-12.0) sec INR (<1.2) APTT (22.0-30.0) sec Sodium 140 (137-145) mmol/L Potassium 4.1 (3.5-5.1) mmol/L Chloride 112 H (98-107) mmol/L Carbon Dioxide 24 (22-30) mmol/L Anion Gap 4 mmol/L BUN 15 (9-20) mg/dL Creatinine 0.68 (0.66-1.25) mg/dL Est GFR (CKD-EPI)AfAm >90 (>60 ml/min/1.73 sqM) Est GFR (CKD-EPI)NonAf >90 (>60 ml/min/1.73 sqM) Glucose 92 (74-99) mg/dL POC Glucose (mg/dL) (70-110) mg/dL POC Glu Laser Systems Engineer ID Calcium 7.4 L (8.4-10.2) mg/dL Total Bilirubin 0.7 (0.2-1.3) mg/dL AST 37 (17-59) U/L ALT 34 (4-49) U/L Alkaline Phosphatase 47 (38-126) U/L Troponin I <0.012 (0.000-0.034) ng/mL Total Protein 6.2 L (6.3-8.2) g/dL Albumin 3.6 (3.5-5.0) g/dL Urine Color Yellow Urine Appearance Clear (Clear) Urine pH 6.5 (5.0-8.0) Ur Specific [place] 1.026 (1.001-1.035) Urine Protein Trace H (Negative) Urine Glucose (UA) Negative (Negative) Urine Ketones 2+ H (Negative) Urine Blood Negative (Negative) Urine Nitrite Negative (Negative) Urine Bilirubin Negative (Negative) Urine Urobilinogen 2.0 (<2.0) mg/dL Ur Leukocyte Esterase Negative (Negative) Disposition Is patient prescribed a controlled substance at d/c from ED?: No Time of Disposition: 03:30 <Son Garcia - Last Filed: 03/29/22 04:12> <Terrance Briggs - Last Filed: 04/04/22 00:44> Clinical Impression: Altered mental state, Encounter for medical screening examination Disposition: HOME SELF-CARE Condition: Stable
[2022-03-28 16:37] LABS: Basophils % (A) 1 %; Eosinophils % (A) 0 %; HCT 44.1 % (39.0-53.0); HGB 14.7 gm/dL (13.0-17.5); Lymphocytes # (A) 1.1 k/uL (1.0-4.8); Lymphocytes % (A) 14 %; MCH 30.8 pg (25.0-35.0); MCHC 33.4 g/dL (31.0-37.0); MCV 92.4 fL (80.0-100.0); Mean Platelet Volume 7.5; Monocytes # (A) 0.5 k/uL (0-1.0); Monocytes % (A) 6 %; Neutrophils # (A) 6.3 k/uL (1.3-7.7); Neutrophils % (A) 78 %; Platelet Count 312 k/uL (150-450); RBC 4.78 m/uL (4.30-5.90); RDW 12.6 % (11.5-15.5); WBC 8.1 k/uL (3.8-10.6)
[2022-03-28 16:51] LABS: Prothrombin Time 10.6 sec (9.0-12.0)
--- NOTE | 2022-03-28 17:05 | XR ---
EXAMINATION TYPE: XR chest 2V DATE OF EXAM: 03/28/2022 COMPARISON: NONE HISTORY: Altered mental status TECHNIQUE: 2 views FINDINGS: Heart and mediastinum are normal. Lungs are clear. Images normal. Bony thorax is intact. There are chest leads. IMPRESSION: Normal chest.
[2022-03-28 17:13] LABS: ALT 34 U/L (4-49); AST 37 U/L (17-59); African American GFR (CKD) >90 (>60 ml/min/1.73 sqM); Albumin 3.6 g/dL (3.5-5.0); Alkaline Phosphatase 47 U/L (38-126); Anion Gap 4 mmol/L; Blood Urea Nitrogen 15 mg/dL (9-20); Calcium 7.4 mg/dL (8.4-10.2); Carbon Dioxide 24 mmol/L (22-30); Chloride 112 mmol/L (98-107); Glucose 92 mg/dL (74-99); Non-African American GFR(CKD) >90 (>60 ml/min/1.73 sqM); Sodium 140 mmol/L (137-145); Total Bilirubin 0.7 mg/dL (0.2-1.3); Total Protein 6.2 g/dL (6.3-8.2)
--- NOTE | 2022-03-28 17:13 | CT ---
EXAMINATION TYPE: CT brain wo con DATE OF EXAM: 03/28/2022 COMPARISON: None HISTORY: Altered mental status CT DLP: mGycm Automated exposure control for dose reduction was used. Images obtained of the brain with no contrast. Ventricles have normal size. There is no mass effect or midline shift. No sign of intracranial hemorr sri. The calvarium is intact. There is normal aeration of the mastoid sinuses. The skull base is int act. There is atrophy of the cerebellar hemispheres. IMPRESSION: Moderate bilateral cerebellar atrophy. No acute intracranial abnormality.
[2022-03-28 17:15] LABS: Potassium 4.1 mmol/L (3.5-5.1)
[2022-03-29 02:19] LABS: Appearance,Urine Clear (Clear); Bilirubin,Urine Negative (Negative); Blood,Urine Negative (Negative); Color,Urine Yellow; Glucose,Urine (UA) Negative (Negative); Ketones,Urine 2+ (Negative); Leukocyte Esterase,Urine Negative (Negative); Nitrite,Urine Negative (Negative); PH, Urine 6.5 (5.0-8.0); Protein,Urine Trace (Negative); Specific Gravity,Urine 1.026 (1.001-1.035)
[2022-03-29] MEDS ORDERED: NALOXONE 0.4 MG/ML 1 ML VIAL IV PRN (04:59)
[2022-03-29] MEDS: SODIUM CHLORIDE 0.9% 1,000 ML IV SCH ×2 (05:57→14:39)
[2022-03-29] MEDS ORDERED: BENZTROPINE 2 MG/2 ML AMP IV SCH (08:00)
--- NOTE | 2022-03-29 13:39 | P.CN ---
Psychiatric Consult - . Consult date: 03/29/22 Consult:: 03/29/22 13:05 IDENTIFYING DATA: This patient is a [] 52-year-old currently lives in a long- term care facility. REASON FOR REFERRAL: Psychiatry was consulted for ["altered mental status, failure to thrive, dystonia versus akathisia secondary to Risperdal"] HISTORY OF PRESENT ILLNESS: The patient presented to the hospital on 03/28 coming from the long-term case care facility where that was complaining the patient had altered mental status and not himself lately. Patient apparently has been walking into [place]. Patient was recently discharged from [facility] and was under the care of Dr Nelson. Patient was discharged on 03/07/2022 with a diagnosis of major depressive disorder with psychotic features and intellectual disability. Patient at that time was started on Risperdal 2 mg twice a day, Celexa 40 mg daily and BuSpar 30 mg twice a day. Patient nurse claims that she has not had much problems the patient or any complaints. Patient was seen at the bedside sitting up and eating his lunch. He did noticeably have a tremor in his left hand. Patient had a flat affect, was concrete and attempting to cooperate. Initially patient was mumbling and was unintelligible words. Patient was monotone and answered some questions afterwards and states that he feels "good". He was slow to respond. He he did admit to having a tremor in his left hand. He was a poor historian. He knew today's date 03/29/2022. He knew that he was an [facility]. Claims that his sleep and appetite are fair. At this time patient denies any suicidal or homical ideations, intent or plan. Patient denies any auditory, visual hallucinations and denies any paranoia or delusions. Patients admits to using no recreational drugs. PAST PSYCHIATRIC HISTORY: Patient has a a history of major depressive disorder with psychotic features, intellectual disability. Patient was previously on Risperdal, Celexa and BuSpar. Patient was last psychiatrically hospitalized in February 2022. [Patient denies any psychiatric outpatient follow-up.] [Patient denies any history of suicide attempts in the past.] Additional Past Medical History / Comment(s): mild intellectual disability History of Any Multi-Drug Resistant Organisms: None Reported Past Surgical History: No Surgical Hx Reported Past Psychological History: Depression, Schizoaffective Disorder Smoking Status: Never smoker ALLERGIES: as per EMR. CHEMICAL DEPENDENCY HISTORY: as per HPI. FAMILY PSYCHIATRIC/SUBSTANCE USE HISTORY: Unable to gather this information SOCIAL HISTORY: Unable to gather this information. Patient currently lives in a long-term care facility. MENTAL STATUS EXAM: General Appearance: Patient appears to be stated age is alert, attempts to cooperate, eating lunch. Patient appears to have poor hygiene and grooming wearing hospital gown with intense eye contact. Behavior: [Patient is calmly lying in bed without any agitated behavior.] tremor in left hand. Speech: Patient's speech is fluent and nonpressured. mumbling at times. Mood/Affect: Patient reports their mood is "[depressed]", affect is congruent and constricted Suicidality/Homicidality: Patient denies having any suicidal or homicidal ideation intent or plan. Perceptions: Patient denies any visual hallucinations [and denies any auditory hallucinations] Though content/process: concrete, poverty of content. Memory and concentration: AOX3, grossly intact for the purposes of this session. Cannot spell "WORLD" backwards Judgment and insight: chornically limited IMPRESSIONS: []Major depressive disorder, with psychotic features Intellect disability PLAN: -At this time patient DOES [NOT] meet criteria for inpatient psychiatric admission. -Would recommend the following medication changes/additions: Changed Cogentin 2 by mouth 0.5 mg twice a day for EPS prophylaxis. Start Abilify 5 mg daily for psychosis/mood adjunct, Zoloft 50 mg daily for mood/anxiety. [-Communicated plan to patient's nurse] [-Will continue to follow along] tomorrow and likely sign off then -Please contact with any questions.
[2022-03-29] MEDS: SERTRALINE 50 MG TAB PO SCH (14:37)
[2022-03-29] MEDS: ARIPiprazole 5 MG TAB PO SCH (14:37)
--- NOTE | 2022-03-29 18:52 | P.HPIM ---
History of Present Illness H&P Date: 03/29/22 Joey Newby, is a 52-year-old male well-known to my practice who presented to [facility] emergency room with a chief complaint of mental status changes He was evaluated in the emergency room vital examination on presentation revealed a temperature of 97.8 pulse 92 respiration 18 blood pressure 125/83 pulse ox 100% on room air Laboratory data revealed a white blood count of 8.1 hemoglobin 14.7 platelet count 312 sodium 140 potassium 4.1 chloride 112 CO2 24 BUN 15 creatinine 0.68 urine analysis without any evidence of infection Testing in the emergency room revealed computed tomography scan of the brain done in the emergency room revealed bilateral moderate cerebellar atrophy no acute intracranial abnormality. Chest x-ray done in the emergency room revealed normal chest. EKG done in the emergency room revealed normal sinus rhythm without any acute abnormality Patient was admitted to medical floor for further evaluation and treatment. He was started on Cogentin in the emergency room. Psychiatry consultation was requested Past medical history is significant for history of intellectual disability, patient lives in a senior living and requires 24-hour care, he has known history of major depression with psychotic features and was previously on Celexa and Risperdal Past Medical History Past Medical History: Memory Impairment Additional Past Medical History / Comment(s): mild intellectual disability History of Any Multi-Drug Resistant Organisms: None Reported Past Surgical History: No Surgical Hx Reported Past Psychological History: Depression, Schizoaffective Disorder Smoking Status: Never smoker Past Alcohol Use History: None Reported Past Drug Use History: None Reported - Past Family History Mother Family Medical History: Unable to Obtain Father Family Medical History: Unable to Obtain Medications and Allergies Home Medications Medication Instructions Recorded Confirmed Type Ascorbic Acid [Vitamin C] 500 mg PO DAILY 03/01/22 03/28/22 History Cholecalciferol [Vitamin D3 (25 50 mcg PO DAILY 03/01/22 03/28/22 History Mcg = 1000 Iu)] Zinc Sulfate [Orazinc] 220 mg PO DAILY 03/01/22 03/28/22 History Citalopram Hydrobromide [CeleXA] 40 mg PO DAILY 30 Days tab 03/04/22 03/28/22 Rx busPIRone HCL [Buspar] 30 mg PO BID 30 Days tab 03/04/22 03/28/22 Rx risperiDONE [RisperDAL] 1 mg PO BID 03/28/22 03/28/22 History Allergies Allergy/AdvReac Type Severity Reaction Status Date / Time fluphenazine [From Prolixin] AdvReac severe Verified 03/28/22 17:01 dystonia, not responsive to benztropine, hospitalized Physical Exam Vitals: Vital Signs Temp Pulse Resp BP Pulse Ox 03/29/22 12:36 98.7 F 96 18 134/84 96 03/29/22 09:07 99.2 F 81 18 116/81 98 03/29/22 05:58 70 15 139/76 03/29/22 02:00 98.2 F 98 16 125/81 03/28/22 19:07 98.2 F 120 H 20 163/84 96 03/28/22 15:58 97.8 F 92 18 125/83 100 Intake and Output 03/28/22 03/29/22 03/29/22 22:59 06:59 14:59 Other: Weight 80.286 kg 80.286 kg In general patient is alert, slightly confused in no distress HEENT head normocephalic and atraumatic Neck is supple no JVD no goiter no lymphadenopathy no carotid bruit Chest examination is clear to auscultation no crackles no wheezing Cardiac exam reveals regular heart sounds S1 and S2 no gallops no murmurs Abdomen is soft nontender no organomegaly with normal bowel sounds Extremity exam reveals no edema no cyanosis or clubbing Neurological examination reveals no gross focal deficits Results CBC & Chem 7: 03/28/22 16:18 03/28/22 16:18 Labs: Abnormal Lab Results - Last 24 Hours (Table) 03/28/22 03/29/22 Range/Units 16:18 02:00 Chloride 112 H (98-107) mmol/L Calcium 7.4 L (8.4-10.2) mg/dL Total Protein 6.2 L (6.3-8.2) g/dL Urine Protein Trace H (Negative) Urine Ketones 2+ H (Negative) Thrombosis Risk Factor Assmnt - Choose All That Apply Each Factor Represents 1 point: Age 41-60 years Other Risk Factors: No Thrombosis Risk Factor Assessment Total Risk Factor Score: 1 Thrombosis Risk Factor Assessment Level: Low Risk Assessment and Plan Plan: Mental status changes Major depression with psychotic features Underlying history of intellectual disability No significant medical history otherwise At this time patient is admitted to medical floor Psychiatry consultation was requested Labs were reviewed no acute abnormality Home medications reviewed For DVT prophylaxis subcu Lovenox Will follow closely
[2022-03-29] MEDS: BENZTROPINE MESYLATE 0.5 MG TAB PO SCH (21:15)
[2022-03-29] MEDS: ENOXAPARIN 40 MG/0.4 ML SYRINGE SQ SCH (21:16)
[2022-03-30] MEDS: SERTRALINE 50 MG TAB PO SCH (08:52)
[2022-03-30] MEDS: ARIPiprazole 5 MG TAB PO SCH (08:53)
[2022-03-30] MEDS: SODIUM CHLORIDE 0.9% 1,000 ML IV SCH (08:53)
[2022-03-30] MEDS: BENZTROPINE MESYLATE 0.5 MG TAB PO SCH ×2 (08:53→20:46)
--- NOTE | 2022-03-30 12:44 | P.PN ---
Subjective Progress Note Date: 03/30/22 Joey Newby, is a 52-year-old male well-known to my practice who presented to [facility] emergency room with a chief complaint of mental status changes He was evaluated in the emergency room vital examination on presentation revealed a temperature of 97.8 pulse 92 respiration 18 blood pressure 125/83 pulse ox 100% on room air Laboratory data revealed a white blood count of 8.1 hemoglobin 14.7 platelet count 312 sodium 140 potassium 4.1 chloride 112 CO2 24 BUN 15 creatinine 0.68 urine analysis without any evidence of infection Testing in the emergency room revealed computed tomography scan of the brain done in the emergency room revealed bilateral moderate cerebellar atrophy no acu te intracranial abnormality. Chest x-ray done in the emergency room revealed normal chest. EKG done in the emergency room revealed normal sinus rhythm without any acute abnormality Patient was admitted to medical floor for further evaluation and treatment. He was started on Cogentin in the emergency room. Psychiatry consultation was requested Past medical history is significant for history of intellectual disability, patient lives in a half-way and requires 24-hour care, he has known history of major depression with psychotic features and was previously on Celexa and Risperdal On 03/30/2022 patient is alert and oriented 3. Patient was evaluated by psychiatry services at this time does not meet criteria. Patient recommendations to medication include Cogentin by mouth half milligrams twice daily in the initiation of Abilify and Zoloft. Awaiting further evaluation and recommendation per psychiatry note. Discharge planning is in place case management following. Current vital signs temp 98.3, pulse rate 84, respiratory rate 17, blood pressure 109/72 with pulse ox 96% on room air. Objective - Vital Signs Vital signs: Vital Signs Temp 98.3 F 03/30/22 12:02 Pulse 84 03/30/22 12:02 Resp 17 03/30/22 12:02 BP 109/72 03/30/22 12:02 Pulse Ox 96 03/30/22 12:02 FiO2 Intake & Output 03/29/22 03/30/22 03/30/22 18:59 06:59 18:59 Weight 80.286 kg Other: Voiding Method Diaper Diaper Diaper Incontinent Incontinent Incontinent # Voids 1 2 1 # Bowel Movements 1 - Exam In general patient is alert, slightly confused in no distress HEENT head normocephalic and atraumatic Neck is supple no JVD no goiter no lymphadenopathy no carotid bruit Chest examination is clear to auscultation no crackles no wheezing Cardiac exam reveals regular heart sounds S1 and S2 no gallops no murmurs Abdomen is soft nontender no organomegaly with normal bowel sounds Extremity exam reveals no edema no cyanosis or clubbing Neurological examination reveals no gross focal deficits - Labs CBC & Chem 7: 03/28/22 16:18 03/28/22 16:18 Assessment and Plan Plan: Mental status changes Major depression with psychotic features Underlying history of intellectual disability No significant medical history otherwise At this time patient is admitted to medical floor Psychiatry consultation was requested, started on Cogentin, Abilify and Zoloft Labs were reviewed no acute abnormality Home medications reviewed For DVT prophylaxis subcu Lovenox Will follow closely
--- NOTE | 2022-03-30 14:35 | P.PN ---
Progress Note - Text Progress Note Date: 03/30/22 Interval History: Patient was seen today for psychiatric follow-up. Patient was sitting in his chair appeared to have improvement in hygiene and grooming today. He had a improvement in his affect today as well. He was watching television. He was following commands. Continues to be fairly concrete and monotone. He denies any problems with his medications. Appears to have fairly limited insight and judgment. He appears to have improvement in his tremors in his hands bilaterally. She claims that his mood is "okay" and denying any depression or anxiety at this time. States that he slept fairly last night. At this time patient denies any suicidal or homical ideations, intent or plan. Patient denies any auditory, visual hallucinations and denies any paranoia or delusions. Patient denies any side effects from the medications and has been compliant with meds. Mental Status Exam: General Appearance: Patient appears to be stated age is alert, attempts to cooperate, watching television and chair. Patient appears to have poor hygiene and grooming wearing hospital gown with intense eye contact. Behavior: Patient is calmly sitting in chair without any agitated behavior. Her improved. Speech: Patient's speech is fluent and nonpressured. Speech is more clear today. Monotone and concrete. Mood/Affect: Patient reports their mood is "ok", affect is congruent and brighter affect Suicidality/Homicidality: Patient denies having any suicidal or homicidal ideation intent or plan. Perceptions: Patient denies any visual hallucinations and denies any auditory hallucinations Though content/process: concrete, poverty of content. Memory and concentration: AOX3, grossly intact for the purposes of this session Judgment and insight: chornically limited IMPRESSIONS: Major depressive disorder, with psychotic features Intellect disability Plan: -At this time patient DOES NOT meet criteria for inpatient psychiatric admission. -Would recommend the following medication changes/additions: decreased Cogentin 0.5 mg QHS for EPS prophylaxis. continue Abilify 5 mg daily for psychosis/mood adjunct, Zoloft 50 mg daily for mood/anxiety. -Communicated plan to patient's nurse -at this time psychiatry will sign off. -Please contact with any questions.
--- NOTE | 2022-03-30 17:37 | P.PN ---
Progress Note - Text Progress Note Date: 03/30/22 On 03/30/2022 patient was reevaluated on the medical floor, he was seen by psychiatry, medication changes made with decrease Cogentin to 0.5 mg once daily at bedtime. Patient was cleared by psychiatry. I put in discharge for patient to go home and wrote prescription for Zoloft, Abilify, and Cogentin. However patient is having difficulty standing and walking on his own. Recommendation by physical therapy is to transfer to a rehab unit Patient will be discharged to rehab when bed is available.
[2022-03-30] MEDS: ENOXAPARIN 40 MG/0.4 ML SYRINGE SQ SCH (18:01)
[2022-03-31] MEDS: BENZTROPINE MESYLATE 0.5 MG TAB PO SCH ×2 (09:01→21:40)
[2022-03-31] MEDS: SERTRALINE 50 MG TAB PO SCH (09:01)
[2022-03-31] MEDS: ARIPiprazole 5 MG TAB PO SCH (09:01)
--- NOTE | 2022-03-31 09:59 | P.PN ---
Subjective Progress Note Date: 03/31/22 Joey Newby, is a 52-year-old male well-known to my practice who presented to [facility] emergency room with a chief complaint of mental status changes He was evaluated in the emergency room vital examination on presentation revealed a temperature of 97.8 pulse 92 respiration 18 blood pressure 125/83 pulse ox 100% on room air Laboratory data revealed a white blood count of 8.1 hemoglobin 14.7 platelet count 312 sodium 140 potassium 4.1 chloride 112 CO2 24 BUN 15 creatinine 0.68 urine analysis without any evidence of infection Testing in the emergency room revealed computed tomography scan of the brain done in the emergency room revealed bilateral moderate cerebellar atrophy no acu te intracranial abnormality. Chest x-ray done in the emergency room revealed normal chest. EKG done in the emergency room revealed normal sinus rhythm without any acute abnormality Patient was admitted to medical floor for further evaluation and treatment. He was started on Cogentin in the emergency room. Psychiatry consultation was requested Past medical history is significant for history of intellectual disability, patient lives in a senior care and requires 24-hour care, he has known history of major depression with psychotic features and was previously on Celexa and Risperdal On 03/30/2022 patient is alert and oriented 3. Patient was evaluated by psychiatry services at this time does not meet criteria. Patient recommendations to medication include Cogentin by mouth half milligrams twice daily in the initiation of Abilify and Zoloft. Awaiting further evaluation and recommendation per psychiatry note. Discharge planning is in place case management following. Current vital signs temp 98.3, pulse rate 84, respiratory rate 17, blood pressure 109/72 with pulse ox 96% on room air. On 03/31/2022 patient is alert and oriented 3. Discharge planning to [facility] facility medical [place] progress. Open completed waiting insurance prior auth and accepting facility. At this time patient is resting comfortably bed patient denies chest pain or shortness of breath. Patient denies nausea vomiting or diarrhea. Patient denies any urinary burning or frequency Objective - Vital Signs Vital signs: Vital Signs Temp 98 F 03/31/22 07:20 Pulse 59 L 03/31/22 07:20 Resp 17 03/31/22 07:20 BP 125/84 03/31/22 07:20 Pulse Ox 96 03/31/22 07:20 FiO2 Intake & Output 03/30/22 03/31/22 03/31/22 18:59 06:59 18:59 Intake Total 590 Balance 590 Intake: Oral 590 Other: Voiding Method Diaper Diaper Incontinent Incontinent # Voids 1 2 - Exam In general patient is alert, slightly confused in no distress HEENT head normocephalic and atraumatic Neck is supple no JVD no goiter no lymphadenopathy no carotid bruit Chest examination is clear to auscultation no crackles no wheezing Cardiac exam reveals regular heart sounds S1 and S2 no gallops no murmurs Abdomen is soft nontender no organomegaly with normal bowel sounds Extremity exam reveals no edema no cyanosis or clubbing Neurological examination reveals no gross focal deficits - Labs CBC & Chem 7: 03/28/22 16:18 03/28/22 16:18 Assessment and Plan Plan: Mental status changes Major depression with psychotic features Underlying history of intellectual disability No significant medical history otherwise At this time patient is admitted to medical floor Psychiatry consultation was requested, started on Cogentin, Abilify and Zoloft Discharge planning to [facility] facility Labs were reviewed no acute abnormality Home medications reviewed For DVT prophylaxis subcu Lovenox Will follow closely
[2022-03-31 10:40] LABS: Basophils # (A) 0.06 X 10*3/uL (0.00-0.10); Basophils % (A) 0.8 %; Eosinophils # (A) 0.09 X 10*3/uL (0.04-0.35); Eosinophils % (A) 1.2 %; HCT 44.6 % (39.6-50.0); HGB 14.7 g/dL (13.0-17.0); Immature Grans, Automated 0.4 %; Lymphocytes # (A) 1.64 X 10*3/uL (0.90-5.00); Lymphocytes % (A) 22.6 %; MCH 30.3 pg (27.0-32.0); Mean Platelet Volume 9.6 fL (9.5-12.2); Monocytes # (A) 0.67 X 10*3/uL (0.20-1.00); Monocytes % (A) 9.2 %; NRBC Per 100 WBC 0 /100 WBCS (0.0-0.0); Neutrophils # (A) 4.76 X 10*3/uL (1.80-7.70); Neutrophils % (A) 65.8 %; Platelet Count 305 X 10*3/uL (140-440); RBC 4.85 X 10*6/uL (4.40-5.60); RDW 12.6 % (11.5-14.5); WBC 7.25 X 10*3/uL (4.50-10.00)
[2022-03-31 11:05] LABS: African American GFR (CKD) 120.1 (60.0-200.0); Albumin 3.9 g/dL (3.8-4.9); Albumin/Globulin Ratio 1.86 (1.60-3.17); Anion Gap 10.3 mmol/L (10.00-18.00); Blood Urea Nitrogen 9.7 mg/dL (9.0-27.0); Calcium 8.7 mg/dL (8.7-10.3); Carbon Dioxide 23.8 mmol/L (20.0-27.5); Globulin 2.1 g/dL (1.6-3.3); Non-African American GFR(CKD) 103.6 (60.0-200.0); Total Bilirubin 0.5 mg/dL (0.30-1.20)
[2022-03-31] MEDS: ENOXAPARIN 40 MG/0.4 ML SYRINGE SQ SCH (21:40)
[2022-04-01] MEDS: BENZTROPINE MESYLATE 0.5 MG TAB PO SCH (09:03)
[2022-04-01] MEDS: SERTRALINE 50 MG TAB PO SCH (09:04)
[2022-04-01] MEDS: ARIPiprazole 5 MG TAB PO SCH (09:04)
--- NOTE | 2022-04-01 12:49 | P.DS ---
Providers Date of admission: 03/29/22 04:59 Expected date of discharge: 03/31/22 Attending physician: Alaina Diaz Consults: 03/29/22 04:59 Consult Physician Routine Consulting Provider: Calvin Nelson Consult Reason/Comments: AMS, failure to thrive, dystonia vs akathisia 2/2 risperidone Do you want consulting provider notified?: Yes, Notify in am Primary care physician: Alaina Diaz [facility] Course: Diagnosis on discharge: Mental status changes Major depression with psychotic features Underlying history of intellectual disability Hospital course: Joey Newby, is a 52-year-old male well-known to my practice who presented to [facility] emergency room with a chief complaint of mental status changes He was evaluated in the emergency room vital examination on presentation revealed a temperature of 97.8 pulse 92 respiration 18 blood pressure 125/83 pulse ox 100% on room air Laboratory data revealed a white blood count of 8.1 hemoglobin 14.7 platelet count 312 sodium 140 potassium 4.1 chloride 112 CO2 24 BUN 15 creatinine 0.68 urine analysis without any evidence of infection Testing in the emergency room revealed computed tomography scan of the brain done in the emergency room revealed bilateral moderate cerebellar atrophy no acute intracranial abnormality. Chest x-ray done in the emergency room revealed normal chest. EKG done in the emergency room revealed normal sinus rhythm without any acute abnormality Patient was admitted to medical floor for further evaluation and treatment. He was started on Cogentin in the emergency room. Psychiatry consultation was requested Past medical history is significant for history of intellectual disability, patient lives in a senior care and requires 24-hour care, he has known history of major depression with psychotic features and was previously on Celexa and Risperdal On 03/31/2022 patient was seen and examined on the medical floor he is alert and oriented in no apparent distress he was able to walk with physical therapy he denies any complaints at this time. Plan is to discharge back to [facility] today. Patient Condition at Discharge: Stable Plan - Discharge Summary New Discharge Prescriptions: New Sertraline [Zoloft] 50 mg PO DAILY tab ARIPiprazole [Abilify] 5 mg PO DAILY tab Benztropine Mesylate [Cogentin] 0.5 mg PO DAILY 30 Days #30 tablet Continue Cholecalciferol [Vitamin D3 (25 Mcg = 1000 Iu)] 50 mcg PO DAILY Ascorbic Acid [Vitamin C] 500 mg PO DAILY Discontinued Zinc Sulfate [Orazinc] 220 mg PO DAILY busPIRone HCL [Buspar] 30 mg PO BID 30 Days tab Citalopram Hydrobromide [CeleXA] 40 mg PO DAILY 30 Days tab risperiDONE [RisperDAL] 1 mg PO BID Discharge Medication List Ascorbic Acid [Vitamin C] 500 mg PO DAILY 03/01/22 [History] Cholecalciferol [Vitamin D3 (25 Mcg = 1000 Iu)] 50 mcg PO DAILY 03/01/22 [History] ARIPiprazole [Abilify] 5 mg PO DAILY tab 03/30/22 [Rx] Benztropine Mesylate [Cogentin] 0.5 mg PO DAILY 30 Days #30 tablet 03/30/22 [Rx] Sertraline [Zoloft] 50 mg PO DAILY tab 03/30/22 [Rx] Follow up Appointment(s)/Referral(s): Alaina Diaz MD [Primary Care Provider] - 1-2 days Patient Instructions/Handouts: Altered Mental Status (ED)
--- NOTE | 2022-04-01 12:50 | P.PN ---
Subjective Progress Note Date: 04/01/22 Joey Newby, is a 52-year-old male well-known to my practice who presented to [facility] emergency room with a chief complaint of mental status changes He was evaluated in the emergency room vital examination on presentation revealed a temperature of 97.8 pulse 92 respiration 18 blood pressure 125/83 pulse ox 100% on room air Laboratory data revealed a white blood count of 8.1 hemoglobin 14.7 platelet count 312 sodium 140 potassium 4.1 chloride 112 CO2 24 BUN 15 creatinine 0.68 urine analysis without any evidence of infection Testing in the emergency room revealed computed tomography scan of the brain done in the emergency room revealed bilateral moderate cerebellar atrophy no acu te intracranial abnormality. Chest x-ray done in the emergency room revealed normal chest. EKG done in the emergency room revealed normal sinus rhythm without any acute abnormality Patient was admitted to medical floor for further evaluation and treatment. He was started on Cogentin in the emergency room. Psychiatry consultation was requested Past medical history is significant for history of intellectual disability, patient lives in a detention and requires 24-hour care, he has known history of major depression with psychotic features and was previously on Celexa and Risperdal On 03/30/2022 patient is alert and oriented 3. Patient was evaluated by psychiatry services at this time does not meet criteria. Patient recommendations to medication include Cogentin by mouth half milligrams twice daily in the initiation of Abilify and Zoloft. Awaiting further evaluation and recommendation per psychiatry note. Discharge planning is in place case management following. Current vital signs temp 98.3, pulse rate 84, respiratory rate 17, blood pressure 109/72 with pulse ox 96% on room air. On 03/31/2022 patient is alert and oriented 3. [facility]. Open completed waiting insurance prior auth and accepting facility. At this time patient is resting comfortably bed patient denies chest pain or shortness of breath. Patient denies nausea vomiting or diarrhea. Patient denies any urinary burning or frequency On 04/01/2022 patient was seen and examined on the medical floor he is alert and oriented 3 in no apparent distress, there is no fever or chills no headache or dizziness no chest pain no shortness of breath no cough no nausea or vomiting no abdominal pain no diarrhea and no urinary symptoms. Patient is still having difficulty with ambulation and plan at this time is to transfer to a rehab unit. Objective - Vital Signs Vital signs: Vital Signs Temp 98.2 F 04/01/22 08:17 Pulse 65 04/01/22 08:17 Resp 18 04/01/22 08:17 BP 106/68 04/01/22 08:17 Pulse Ox 96 04/01/22 08:17 FiO2 Intake & Output 03/31/22 04/01/22 04/01/22 18:59 06:59 18:59 Intake Total 590 Balance 590 Intake: Oral 590 Other: Voiding Method Diaper Diaper Diaper Incontinent Incontinent Incontinent # Voids 2 2 - Exam In general patient is alert, slightly confused in no distress HEENT head normocephalic and atraumatic Neck is supple no JVD no goiter no lymphadenopathy no carotid bruit Chest examination is clear to auscultation no crackles no wheezing Cardiac exam reveals regular heart sounds S1 and S2 no gallops no murmurs Abdomen is soft nontender no organomegaly with normal bowel sounds Extremity exam reveals no edema no cyanosis or clubbing Neurological examination reveals no gross focal deficits - Labs CBC & Chem 7: 03/31/22 06:33 03/31/22 06:33 Assessment and Plan Plan: Mental status changes Major depression with psychotic features Underlying history of intellectual disability No significant medical history otherwise At this time patient is admitted to medical floor Psychiatry consultation was requested, started on Cogentin, Abilify and Zoloft [facility] Labs were reviewed no acute abnormality Home medications reviewed For DVT prophylaxis subcu [facility] Will follow closely
[2022-04-01 14:14] VITALS: BP 115/70; PULSE 74; RESP 16; TEMP 98.1
--- NOTE | 2022-04-01 15:36 | P.DS ---
Providers Date of admission: 03/29/22 04:59 Expected date of discharge: 04/01/22 Attending physician: Alaina Diaz Consults: 03/29/22 04:59 Consult Physician Routine Consulting Provider: Calvin Nelson Consult Reason/Comments: AMS, failure to thrive, dystonia vs akathisia 2/2 risperidone Do you want consulting provider notified?: Yes, Notify in am Primary care physician: Alaina Diaz [facility] Course: Diagnosis on discharge: Mental status changes Major depression with psychotic features Underlying history of intellectual disability Hospital course: Joey Newby, is a 52-year-old male well-known to my practice who presented to [facility] emergency room with a chief complaint of mental status changes He was evaluated in the emergency room vital examination on presentation revealed a temperature of 97.8 pulse 92 respiration 18 blood pressure 125/83 pulse ox 100% on room air Laboratory data revealed a white blood count of 8.1 hemoglobin 14.7 platelet count 312 sodium 140 potassium 4.1 chloride 112 CO2 24 BUN 15 creatinine 0.68 urine analysis without any evidence of infection Testing in the emergency room revealed computed tomography scan of the brain done in the emergency room revealed bilateral moderate cerebellar atrophy no acute intracranial abnormality. Chest x-ray done in the emergency room revealed normal chest. EKG done in the emergency room revealed normal sinus rhythm without any acute abnormality Patient was admitted to medical floor for further evaluation and treatment. He was started on Cogentin in the emergency room. Psychiatry consultation was requested Past medical history is significant for history of intellectual disability, patient lives in a skilled nursing and requires 24-hour care, he has known history of major depression with psychotic features and was previously on Celexa and Risperdal On 03/30/2022 patient is alert and oriented 3. Patient was evaluated by psychiatry services at this time does not meet criteria. Patient recommendations to medication include Cogentin by mouth half milligrams twice daily in the initiation of Abilify and Zoloft. Awaiting further evaluation and recommendation per psychiatry note. Discharge planning is in place case management following. Current vital signs temp 98.3, pulse rate 84, respiratory rate 17, blood pressure 109/72 with pulse ox 96% on room air. On 03/31/2022 patient is alert and oriented 3. Discharge planning to [facility] facility medical [facility] progress. Open completed waiting insurance prior auth and accepting facility. At this time patient is resting comfortably bed patient denies chest pain or shortness of breath. Patient denies nausea vomiting or diarrhea. Patient denies any urinary burning or frequency On 04/01/2022 patient was seen and examined on the medical floor he is alert and oriented 3 in no apparent distress, there is no fever or chills no headache or dizziness no chest pain no shortness of breath no cough no nausea or vomiting no abdominal pain no diarrhea and no urinary symptoms. Patient is still having difficulty with ambulation and plan at this time is to transfer to a rehab unit. Patient Condition at Discharge: Stable Plan - Discharge Summary New Discharge Prescriptions: New Sertraline [Zoloft] 50 mg PO DAILY tab ARIPiprazole [Abilify] 5 mg PO DAILY tab Benztropine Mesylate [Cogentin] 0.5 mg PO DAILY 30 Days #30 tablet Continue Cholecalciferol [Vitamin D3 (25 Mcg = 1000 Iu)] 50 mcg PO DAILY Ascorbic Acid [Vitamin C] 500 mg PO DAILY Discontinued Zinc Sulfate [Orazinc] 220 mg PO DAILY busPIRone HCL [Buspar] 30 mg PO BID 30 Days tab Citalopram Hydrobromide [CeleXA] 40 mg PO DAILY 30 Days tab risperiDONE [RisperDAL] 1 mg PO BID Discharge Medication List Ascorbic Acid [Vitamin C] 500 mg PO DAILY 03/01/22 [History] Cholecalciferol [Vitamin D3 (25 Mcg = 1000 Iu)] 50 mcg PO DAILY 03/01/22 [History] ARIPiprazole [Abilify] 5 mg PO DAILY tab 03/30/22 [Rx] Benztropine Mesylate [Cogentin] 0.5 mg PO DAILY 30 Days #30 tablet 03/30/22 [Rx] Sertraline [Zoloft] 50 mg PO DAILY tab 03/30/22 [Rx] Follow up Appointment(s)/Referral(s): Alaina Diaz MD [Primary Care Provider] - 1-2 days Patient Instructions/Handouts: Altered Mental Status (ED)
== END 2022-04-01 18:15 | DRG 885 ==
LOC: EC 15:51 → 4SSUR 03-29 04:59 → 5NMEDONC 03-29 12:17
PROVIDERS: ADMIT Internal Medicine; ATTEND Internal Medicine
DX: F32.3 Major depressive disorder, single episode, severe with psychotic features (principal); R62.7 Adult failure to thrive; G31.9 Degenerative disease of nervous system, unspecified; F70 Mild intellectual disabilities; Z20.822 Contact with and (suspected) exposure to COVID-19; Z28.310 Unvaccinated for COVID-19; R32 Unspecified urinary incontinence; R25.1 Tremor, unspecified; Z79.899 Other long term (current) drug therapy; Z88.8 Allergy status to other drugs, medicaments and biological substances
CPT/HCPCS: 36415; 70450; 71046; 80053; 81003; 84484; 85025; 85610; 85730; 87635; 93005; 94760; 96361; 96374; 99285

== ENCOUNTER → 2023-10-31 | Outpatient (CLI) | payer MEDICARE, OTHER | END | disposition home or self-care (01) | LOC: LABWHC1 14:53 | PROVIDERS: ATTEND Psychiatry & Neurology Psychiatry | DX: Z79.899 Other long term (current) drug therapy (principal) | CPT/HCPCS: 36415; 80342 ==